=== PATIENT | male | born 1985 | race Caucasian/White ===

== ENCOUNTER 2023-01-06 09:42 | Inpatient (IN) | payer MEDICARE, SELFPAY ==
--- NOTE | ~2023-01-06 | US_ITS ---
EXAMINATION: US ABDOMEN LIMITED CLINICAL INFORMATION: Right upper quadrant pain. Elevated bilirubin. Jaundice.. COMPARISON: None TECHNIQUE: Real-time imaging of the right upper quadrant abdominal viscera. FINDINGS: PANCREAS: Not evaluated. LIVER: Prominent portal vein measuring 2.1 cm. The vein is patent with appropriate directional flow. The liver is normal in size. The liver contour is normal. There is diffuse increased liver parenchymal echogenicity, consistent with hepatic steatosis or hepatocellular disease. No focal hepatic lesion. There is no intrahepatic biliary duct dilatation seen. GALLBLADDER: Thickening of the gallbladder wall measuring 0.5 cm. The gallbladder is physiologically distended without evidence of stones, sludge, polyps, or pericholecystic fluid. COMMON BILE DUCT: Normal in caliber measuring 0.5 cm in diameter. RIGHT KIDNEY: Not evaluated. FREE FLUID: None. US/US abdomen limited IMPRESSION: 1. Increased liver parenchymal echogenicity suggestive of hepatic steatosis or hepatocellular disease. 2. Nonspecific gallbladder wall thickening. This can be seen in the setting of liver disease. No cholelithiasis.
--- NOTE | ~2023-01-06 | XR_ITS ---
EXAMINATION: XR CHEST CLINICAL INFORMATION: Rule out infection. COMPARISON: None TECHNIQUE: Frontal view of the chest was obtained. FINDINGS: No significant abnormality is noted involving the heart, lungs, mediastinum, bony thorax or soft tissues. XR/XR chest 1V IMPRESSION: No acute cardiopulmonary process.
--- NOTE | 2023-01-06 09:52 | ED_ITS ---
HPI - General Adult General Chief complaint: Medical Clearance Stated complaint: WITHDRAWAL FROM ALCOHOL PER EMS Time Seen by Provider: 01/06/23 09:51 Source: patient and EMS Mode of arrival: EMS Limitations: no limitations History of Present Illness HPI narrative: Pt is a 37 y/o male with history of liver disease and esophageal varicies cc seeking detox from alcohol, currently experiencing withdrawals. Pt states his last drink was at approx 0300 this morning. He is currently experiencing a wide range of symptoms but mostly complains of nausea and shakiness. He has been to treatment several times in the past and last went to detox and was sober about one week and has been drinking since. He lives with his parents and has not taken his prescribed medication in at least two weeks. Onset (ago): hour(s) Associated symptoms: chest pain, headaches, loss of appetite, nausea/vomiting, shortness of breath and other (shakiness/unsteadiness) Related Data Home Medications Medication Instructions Recorded Confirmed acamprosate 333 mg tablet,delayed 1 tab PO TID 01/06/23 01/06/23 release atomoxetine 80 mg capsule 1 cap PO QAM 01/06/23 01/06/23 buspirone 10 mg tablet 20 mg PO BID 01/06/23 01/06/23 gabapentin 100 mg capsule 1 cap PO TID 01/06/23 01/06/23 nadolol 20 mg tablet 1 tab PO DAILY 01/06/23 01/06/23 pyridoxine (vitamin B6) 100 mg 1 tab PO DAILY 01/06/23 01/06/23 tablet sertraline 100 mg tablet 150 mg PO DAILY 01/06/23 01/06/23 Allergies Allergy/AdvReac Type Severity Reaction Status Date / Time sulfamethoxazole Allergy Unknown Verified 01/06/23 10:01 [From Bactrim] trimethoprim [From Bactrim] Allergy Unknown Verified 01/06/23 10:01 Review of Systems Constitutional: Constitutional: Reports no additional constitutional complaints, Reports body ache(s), Denies chills, Denies fever(s) and Denies night sweats Eyes: Eyes: Reports no additional eye complaints, Denies blurry vision, Denies change in vision, Denies diplopia, Denies eye discharge, Denies loss of vision and Denies eye pain ENT: Denies dizziness Cardiovascular: Cardiovascular: Reports as per HPI, Reports no additional cardiovascular complaints, Denies chest pain, Denies lightheadedness, Denies Loss of Consciousness and Denies dyspnea Respiratory: Respiratory: Reports no additional respiratory complaints and Denies dyspnea Gastrointestinal: Gastrointestinal: Reports as per HPI, Reports no additional gastrointestinal complaints, Denies abdominal pain, Denies melena, Denies hematochezia, Denies change in bowel habits and Denies change in stool character Genitourinary: Genitourinary: Reports no additional male genitourinary complaints, Denies hematuria, Denies oliguria, Denies difficulty urinating, Denies dysuria, Denies urinary frequency, Denies urinary hesitancy, Denies urinary incontinence and Denies urinary urgency Musculoskeletal: Musculoskeletal: Reports no additional musculoskeletal complaints, Reports as per HPI, Denies numbness and Denies tingling Neurologic: Denies dizziness, Denies loss of vision, Denies numbness and Denies tingling Psychiatric: Psychiatric: Reports no additional psychiatric complaints Endocrine: Endocrine: Reports no additional endocrine complaints Hematologic/Lymphatic: Hematologic/Lymphatic: Reports no additional hematologic/lymphatic complaints Allergic/Immunologic: Allergic/Immunologic: Reports no additional allergic/immunologic complaints PMFSH Past Medical History Attestation statement: The following information was validated with the patient. Source: old records reviewed and nursing notes reviewed Medical History ETOH abuse Social History Social History Alcohol intake: current Alcohol intake frequency: 3 or more drinks per day Alcohol type: hard liquor Smoked in Last 30 Days: No Use of substances other than those prescribed or required for medical reasons: No Advance Directives: Yes Advance Directives Information Provided: Yes Advance Directives on File: No Physical Exam ED Vital Signs: Vital Signs - 24 hr 01/06/23 10:01 01/06/23 12:00 01/06/23 13:40 Temperature 98.3 F 98.2 F 97.2 F Pulse Rate 93 97 88 Respiratory Rate 16 18 18 Blood Pressure 149/75 H 127/85 126/79 Pulse Oximetry 97 96 Oxygen Delivery Method Room Air Room Air Room Air BMI result Body Mass Index 25.0 Const General: cooperative, no acute distress, alert and awake Nutritional Appearance: well nourished Orientation/consciousness: patient oriented x3 Limitations: no limitations HENMT Head: Yes normal to inspection, Yes atraumatic and Yes other (scleral icterus) Ears: hearing grossly normal bilaterally and external ears normal General nose exam: Normal external nose present, no nasal discharge noted and no epistaxis Face and sinus: Yes normal facial exam, No abrasion and No laceration Mouth: Normal oral and palatal mucosa present, no drooling and no muffled voice Eyes Periorbital: periorbital findings normal Eyelids: Yes eyelids normal Sclerae: scleral abnormal (scleral icterus) bilateral Pupils: Equal, round and reactive pupils present EOM: EOMs intact bilaterally Neck Neck: Yes normal visual inspection, Yes full ROM and Yes no lymphadenopathy Chest Chest palpation & inspection: normal inspection of the chest Resp Effort & Inspection: normal respiratory effort and able to speak in complete sentences Auscultation: clear to auscultation bilaterally Cardio Rate: regular rate Rhythm: regular rhythm GI Inspection: Yes normal to inspection Palpation (GI): Soft to palpation, not firm, nontender and no guarding Neuro General: patient oriented x3 and moves all extremities Cranial nerves: Yes Equal, round and reactive pupils present Cognition (Neuro): normal cognition Motor exam (neuro): 5/5 motor strength present throughout Sensory Exam: Normal double simultaneous stimulation for sensation Coordination: [id number] test normal Extrem General: Yes normal to inspection, Yes full ROM and Yes capillary refill normal Psych Appearance: grossly normal Mental Status: mental status grossly normal Affect: normal affect Attitude: cooperative Thought process: Normal thought process present Thought content: Normal thought content present Insight: Good insight present (Psych) Medications Administered Generic Name Dose Route Start Last Admin Trade Name Freq PRN Reason Stop Dose Admin Enoxaparin Sodium 40 mg 01/06/23 16:00 01/06/23 17:29 Enoxaparin Sodium 40 Mg/0.4 Ml Syringe SUBCUT Not Given Q24H RAHEL Folic Acid 1 mg 01/06/23 16:00 01/06/23 17:28 Folic Acid 1 Mg Tablet PO 01/09/23 15:59 1 mg DAILY RAHEL Administration Pantoprazole Sodium 40 mg 01/06/23 16:30 01/06/23 17:27 Pantoprazole Sodium 40 Mg/10 Ml Vial IVPUSH 40 mg BID@0630,1630 RAHEL Administration Phenobarbital Sodium 185 mg 01/06/23 17:00 01/06/23 17:27 Phenobarbital Sodium 130 Mg/Ml Vial Im Q3hx2 IM 01/06/23 20:01 185 mg 1700,2000 RAHEL Administration Sodium Chloride 3 ml 01/06/23 16:00 01/06/23 17:28 0.9 % Sodium Chloride Flush 3 Ml Syringe IVFLUSH 3 ml QSHIFT RAHEL Administration Thiamine HCl 100 mg 01/06/23 16:15 01/06/23 17:28 Thiamine Hcl 100 Mg Tablet PO 01/09/23 16:14 100 mg DAILY RAHEL Administration Discontinued Medications Generic Name Dose Route Start Last Admin Trade Name Avel PRN Reason Stop Dose Admin Magnesium Sulfate 2 gm in 50 mls @ 25 mls/hr 01/06/23 10:14 01/06/23 12:27 Magnesium Sulfate/H2o IV 01/06/23 12:13 Infused ONCE ONE Infusion Lorazepam 2 mg 01/06/23 10:05 01/06/23 10:13 Lorazepam 1 Mg Tablet PO 01/06/23 10:06 2 mg ONCE ONE Administration Ondansetron HCl 4 mg 01/06/23 10:15 01/06/23 10:14 Ondansetron Odt 4 Mg Tab.Rapdis TRANSLINGU 01/06/23 10:16 4 mg ONCE RAHEL Administration Phenobarbital Sodium 246 mg 01/06/23 14:00 01/06/23 13:34 Phenobarbital Sodium 130 Mg/Ml Im Once IM 01/06/23 14:01 246 mg ONCE@1400 RAHEL Administration Medical Decision Making Medical Decision Making MDM Narrative: Patient is a 37 year old assigned male at with a history of liver disease, alcohol abuse, and esophageal varicies presenting to the emergency department today for alcohol withdrawal. Patient's physical exam showed jaundiced sclera and skin. Patient's blood work showed elevated LFTs and a markedly elevated blilirubin of 15.1. Patient's EKG showed a prolonged QT for which the patient received IV mag. Patient's RUQ US showed liver disease. I explained my physical exam findings as well as all test results to the patient. I answered all questions asked by the patient. I spoke to the GI provider covering who recommended medical admission. I spoke to the hospitalist team who agreed to adm ission. Patient was started on IM phenobarb for ETOH withdrawal at a reduced rate given the patient's liver function. Patient verbalized agreement and understanding with this treatment plan and admission. Differential Diagnosis Differential Diagnoses: The differential diagnosis associated with the presentation includes alcohol withdrawal, liver disease, ETOH hepatitis Consult Healthcare Provider Management of the patient was discussed with: Hospitalist (agreed to admission) and Vice President Planning (spoke to GI who recommended medical admission) Lab Data MDM Lab Attestation statement: I reviewed the patient's lab results. 01/06/23 10:19 01/06/23 10:19 Labs: Lab Results 01/06/23 01/06/23 01/06/23 Range/Units 10:19 10:19 10:19 WBC 4.3 L (4.8-10.8) X10*3/uL RBC 3.85 L (4.60-5.80) X10*6/uL Hgb 12.6 L (14.0-18.0) g/dl Hct 37.4 L (42.0-52.0) % MCV 97.1 (80.0-98.0) fL MCH 32.7 (27.0-33.0) pg MCHC 33.7 (31.0-36.0) g/dl RDW 21.3 H (11.0-16.0) % Plt Count 43 L (160-400) X10*3/uL MPV 9.9 (9.4-12.4) fL Immature Gran % (Auto) 0.5 H (0.0-0.4) % Neut % (Auto) 81.4 H (45-73) % Lymph % (Auto) 12.0 L (20-40) % [place] % (Auto) 5.4 (2-11) % Eos % (Auto) 0.0 (0-4) % Baso % (Auto) 0.7 (0-2) % Lymph # (Auto) 0.5 L (1.2-4.9) X10*3/uL [place] # (Auto) 0.2 (0.1-1.2) X10*3/uL Eos # (Auto) 0.0 (0.0-0.4) X10*3/uL Baso # (Auto) 0.0 (0.0-0.2) X10*3/uL Abs Immat Gran (auto) 0.02 (0.00-0.03) X10*3/uL Absolute Neuts (auto) 3.5 (2.0-8.3) x10*3/uL Absolute Nucleated RBC 0.000 (0.0-0.012) X10*3/uL Nucleated RBC % (auto) 0.0 (0.0-0.2) /100WBC PT (10.0-13.1) SEC INR (0.9-1.1) APTT (26.0-36.4) SEC Sodium 143 (135-145) mmol/L Potassium 3.3 (3.3-5.1) mmol/L Chloride 105 (96-108) mmol/L Carbon Dioxide 22 (22-29) mmol/L Anion Gap 19 (12-20) BUN 6 L (9-16) mg/dL Creatinine 0.53 (0.5-1.4) mg/dL Estim Creat Clear Calc 164.3 Estimated GFR > 60 Random Glucose 100 (60-115) mg/dL Calcium 7.4 L (8.4-10.2) mg/dL Magnesium (1.6-2.6) mg/dL Total Bilirubin 15.1 H (0.0-1.0) mg/dL AST 390 H (5-37) U/L ALT 90 H (0-40) U/L Alkaline Phosphatase 375 H (39-117) U/L Ammonia (13-55) umol/L Total Protein 7.1 (6.5-8.0) g/dL Albumin 2.9 L (3.5-5.0) g/dL Salicylates < 5.0 L (15-30) mg/dL Acetaminophen < 17 (<30) mcg/mL COVID-19 ([facility]) Negative (Negative) COVID-19 Clin Com See Note Blood Type Antibody Screen 01/06/23 01/06/23 01/06/23 Range/Units 10:49 14:05 14:05 WBC (4.8-10.8) X10*3/uL RBC (4.60-5.80) X10*6/uL Hgb (14.0-18.0) g/dl Hct (42.0-52.0) % MCV (80.0-98.0) fL MCH (27.0-33.0) pg MCHC (31.0-36.0) g/dl RDW (11.0-16.0) % Plt Count (160-400) X10*3/uL MPV (9.4-12.4) fL Immature Gran % (Auto) (0.0-0.4) % Neut % (Auto) (45-73) % Lymph % (Auto) (20-40) % [place] % (Auto) (2-11) % Eos % (Auto) (0-4) % Baso % (Auto) (0-2) % Lymph # (Auto) (1.2-4.9) X10*3/uL [place] # (Auto) (0.1-1.2) X10*3/uL Eos # (Auto) (0.0-0.4) X10*3/uL Baso # (Auto) (0.0-0.2) X10*3/uL Abs Immat Gran (auto) (0.00-0.03) X10*3/uL Absolute Neuts (auto) (2.0-8.3) x10*3/uL Absolute Nucleated RBC (0.0-0.012) X10*3/uL Nucleated RBC % (auto) (0.0-0.2) /100WBC PT 18.7 H (10.0-13.1) SEC INR 1.6 H (0.9-1.1) APTT 35.7 (26.0-36.4) SEC Sodium (135-145) mmol/L Potassium (3.3-5.1) mmol/L Chloride (96-108) mmol/L Carbon Dioxide (22-29) mmol/L Anion Gap (12-20) BUN (9-16) mg/dL Creatinine (0.5-1.4) mg/dL Estim Creat Clear Calc Estimated GFR Random Glucose (60-115) mg/dL Calcium (8.4-10.2) mg/dL Magnesium 2.1 (1.6-2.6) mg/dL Total Bilirubin (0.0-1.0) mg/dL AST (5-37) U/L ALT (0-40) U/L Alkaline Phosphatase (39-117) U/L Ammonia 42 (13-55) umol/L Total Protein (6.5-8.0) g/dL Albumin (3.5-5.0) g/dL Salicylates (15-30) mg/dL Acetaminophen (<30) mcg/mL COVID-19 ([facility]) (Negative) COVID-19 [facility] Blood Type Antibody Screen 01/06/23 Range/Units 14:41 WBC (4.8-10.8) X10*3/uL RBC (4.60-5.80) X10*6/uL Hgb (14.0-18.0) g/dl Hct (42.0-52.0) % MCV (80.0-98.0) fL MCH (27.0-33.0) pg MCHC (31.0-36.0) g/dl RDW (11.0-16.0) % Plt Count (160-400) X10*3/uL MPV (9.4-12.4) fL Immature Gran % (Auto) (0.0-0.4) % Neut % (Auto) (45-73) % Lymph % (Auto) (20-40) % [place] % (Auto) (2-11) % Eos % (Auto) (0-4) % Baso % (Auto) (0-2) % Lymph # (Auto) (1.2-4.9) X10*3/uL [place] # (Auto) (0.1-1.2) X10*3/uL Eos # (Auto) (0.0-0.4) X10*3/uL Baso # (Auto) (0.0-0.2) X10*3/uL Abs Immat Gran (auto) (0.00-0.03) X10*3/uL Absolute Neuts (auto) (2.0-8.3) x10*3/uL Absolute Nucleated RBC (0.0-0.012) X10*3/uL Nucleated RBC % (auto) (0.0-0.2) /100WBC PT (10.0-13.1) SEC INR (0.9-1.1) APTT (26.0-36.4) SEC Sodium (135-145) mmol/L Potassium (3.3-5.1) mmol/L Chloride (96-108) mmol/L Carbon Dioxide (22-29) mmol/L Anion Gap (12-20) BUN (9-16) mg/dL Creatinine (0.5-1.4) mg/dL Estim Creat Clear Calc Estimated GFR Random Glucose (60-115) mg/dL Calcium (8.4-10.2) mg/dL Magnesium (1.6-2.6) mg/dL Total Bilirubin (0.0-1.0) mg/dL AST (5-37) U/L ALT (0-40) U/L Alkaline Phosphatase (39-117) U/L Ammonia (13-55) umol/L Total Protein (6.5-8.0) g/dL Albumin (3.5-5.0) g/dL Salicylates (15-30) mg/dL Acetaminophen (<30) mcg/mL COVID-19 ([facility]) (Negative) COVID-19 Clin Com Blood Type B Positive Antibody Screen NEGATIVE Independent Interpretation I performed an independent interpretation of an: EKG Interpretation: Vent. Rate: 083 BPM ? ? Atrial Rate: 083 BPM P-R Int: 134 ms? QRS Dur: 088 ms QT Int: 438 ms ? ? ? P-R-T Axes: 000 170 158 degrees QTc Int: 514 ms ? Possible limb lead reversal Normal sinus rhythm Right axis deviation cannot exclude lateral infarct/ischemia Prolonged QT Abnormal ECG No previous ECGs available ? Electronically Signed By:KISHORE BARNES Dictated By: Kishore Barnes MD Signed By: Electronically signed by Kishore Barnes MD 01/06/23 3271 Radiology Impression Radiologist Impression: My interpretation is in agreement with the radiologist's impression of this imaging study. EXAMINATION: US ABDOMEN LIMITED CLINICAL INFORMATION: Right upper quadrant pain. Elevated bilirubin. Jaundice.. COMPARISON: None TECHNIQUE: Real-time imaging of the right upper quadrant abdominal viscera. FINDINGS: PANCREAS: Not evaluated. LIVER: Prominent portal vein measuring 2.1 cm. The vein is patent with appropriate directional flow. The liver is normal in size. The liver contour is normal. There is diffuse increased liver parenchymal echogenicity, consistent with hepatic steatosis or hepatocellular disease.? No focal hepatic lesion. There is no intrahepatic biliary duct dilatation seen. GALLBLADDER: Thickening of the gallbladder wall measuring 0.5 cm. The gallbladder is physiologically distended without evidence of stones, sludge, polyps, or pericholecystic fluid. COMMON BILE DUCT: Normal in caliber measuring 0.5 cm in diameter. RIGHT KIDNEY: Not evaluated. FREE FLUID: None. US/US abdomen limited IMPRESSION: 1.? Increased liver parenchymal echogenicity suggestive of hepatic steatosis or hepatocellular disease. 2.? Nonspecific gallbladder wall thickening. This can be seen in the setting of liver disease. No cholelithiasis. Dictated By: Juancarlos Park MD Signed By: Electronically signed by Juancarlos Park MD 01/06/23 6070 Independent Historian Clinical information obtained from an independent historian. History obtained from or confirmed by: EMS Chronic Conditions Patient?s care impacted by: Other (liver disease) Critical Care Time Critical Care Time Critical Care Time: Yes Total Critical Care Time: 45 Attestation: I spent 45 minutes of Critical Care Time with this patient. This does not include time spent on separately reported billable procedures. Discharge Plan Discharge Clinical Impression: Alcohol use disorder, Alcoholic hepatitis Patient Disposition: Admitted As Inpatient Prescriptions: No Action sertraline 100 mg tablet 150 mg PO DAILY nadolol 20 mg tablet 1 tab PO DAILY buspirone 10 mg tablet 20 mg PO BID pyridoxine (vitamin B6) 100 mg tablet 1 tab PO DAILY gabapentin 100 mg capsule 1 cap PO TID acamprosate 333 mg tablet,delayed release (DR/EC) 1 tab PO TID atomoxetine 80 mg capsule 1 cap PO QAM
[2023-01-06 10:01] VITALS: BP 142/86; BP 149/75; PULSE 102; PULSE 93; RESP 16; TEMP 36.8; O2SAT 97; O2SAT 99; BMI 25.0
--- NOTE | 2023-01-06 10:02 | ECG_ITS ---
Test Reason : medical clearance/detox Blood Pressure : / mmHG Vent. Rate : 083 BPM Atrial Rate : 083 BPM P-R Int : 134 ms QRS Dur : 088 ms QT Int : 438 ms P-R-T Axes : 000 170 158 degrees QTc Int : 514 ms Possible limb lead reversal Normal sinus rhythm Right axis deviation cannot exclude lateral infarct/ischemia Prolonged QT Abnormal ECG No previous ECGs available Referred By: Ermelinda Maldonado Electronically Signed By:BRITTANY HERNANDEZ
[2023-01-06] MEDS: LORazepam 1 MG TABLET 2 MG PO (10:13)
[2023-01-06] MEDS: Ondansetron ODT 4 MG TAB.RAPDIS TRANSLINGU (10:14)
[2023-01-06 10:22] LABS: MANUAL DIFF FLAG NO
[2023-01-06 10:25] LABS: Basophils Percent Auto 0.7 % (0-2); Hematocrit 37.4 % (42.0-52.0); Hemoglobin 12.6 g/dl (14.0-18.0); Imm Gran Abs Auto 0.02 X10*3/uL (0.00-0.03); Imm Gran Pct Auto 0.5 % (0.0-0.4); Lymphocytes Absolute Auto 0.5 X10*3/uL (1.2-4.9); Mean Corpuscular HGB Conc 33.7 g/dl (31.0-36.0); Mean Corpuscular Hemoglobin 32.7 pg (27.0-33.0); Mean Corpuscular Volume 97.1 fL (80.0-98.0); Monocytes Absolute Auto 0.2 X10*3/uL (0.1-1.2); Monocytes Percent Auto 5.4 % (2-11); Neutrophils Absolute Auto 3.5 x10*3/uL (2.0-8.3); Neutrophils Percent Auto 81.4 % (45-73); Red Blood Count 3.85 X10*6/uL (4.60-5.80); Red Cell Distribution Width 21.3 % (11.0-16.0); White Blood Count 4.3 X10*3/uL (4.8-10.8)
[2023-01-06] MEDS: Magnesium Sulfate/H2O 2 GM/50 ML PIGGYBACK IV (10:27)
--- NOTE | 2023-01-06 10:29 | PC.NURSE ---
patient a&ox3, iv inserted, labs drawn, nasal swab obtained,pt medicated per order, ekg performed, seizure precautions placed-pt hx seizures with wd, will continue to monitor.
[2023-01-06 10:36] LABS: COVID-19 Test Negative (Negative); IDNOW Serial# 16C4AD1C
[2023-01-06 10:46] LABS: Acetaminophen LAB < 17 mcg/mL (<30); Alanine Aminotransferase 90 U/L (0-40); Albumin Level 2.9 g/dL (3.5-5.0); Alkaline Phosphatase 375 U/L (39-117); Anion Gap 19 (12-20); Aspartate Amino Transferase 390 U/L (5-37); Bilirubin Total 15.1 mg/dL (0.0-1.0); Blood Urea Nitrogen 6 mg/dL (9-16); Calcium 7.4 mg/dL (8.4-10.2); Carbon Dioxide 22 mmol/L (22-29); Chloride 105 mmol/L (96-108); Creatinine Clr Calc Pharmacy 164.3; Estimated Glomerular Filt Rate > 60; Glucose Random 100 mg/dL (60-115); Potassium 3.3 mmol/L (3.3-5.1); Salicylate < 5.0 mg/dL (15-30); Sodium 143 mmol/L (135-145); Total Protein 7.1 g/dL (6.5-8.0)
[2023-01-06 10:53] LABS: Mean Platelet Volume 9.9 fL (9.4-12.4)
[2023-01-06 10:54] LABS: Platelet Count 43 X10*3/uL (160-400)
[2023-01-06 11:15] LABS: Magnesium 2.1 mg/dL (1.6-2.6)
[2023-01-06 12:00] VITALS: BP 127/85; PULSE 97; RESP 18; TEMP 36.8; O2SAT 96
--- NOTE | 2023-01-06 12:53 | PC.NURSE ---
pt sleeping, wakes to verbal stimulus, a&ox3, vss, no c/o pain or discomfort, seizure precautions intact, will continue to monitor.
[2023-01-06] MEDS: PHENobarbitaL sodium 130 MG/ML IM ONCE 246 MG IM (13:34)
--- NOTE | 2023-01-06 13:36 | PHA.MEDREC ---
Pharmacy Consult ? Medication Reconciliation Pharmacy has completed the medication reconciliation.
[2023-01-06 13:40] VITALS: BP 126/79; PULSE 88; RESP 18; TEMP 36.2
--- NOTE | 2023-01-06 13:42 | PC.NURSE ---
patient a&ox3, program paraprofessional intact nsr/st, vss, pt medicated per order, call auguste within reach, seizure precautions intact, will continue to monitor
[2023-01-06 14:20] LABS: INTERNATIONAL NORM RATIO 1.6 (0.9-1.1); Prothrombin Time 18.7 SEC (10.0-13.1)
[2023-01-06 14:22] LABS: Ammonia 42 umol/L (13-55)
[2023-01-06 14:23] LABS: Partial Thromboplastin Time 35.7 SEC (26.0-36.4)
--- NOTE | 2023-01-06 14:29 | P.HPHOSP_ITS ---
History of Present Illness Date of Service: 01/06/23 Attending physician on admission: Tracey Ivan Chief Complaint: Alcohol detox Pt is a 37-year-old male with a PMH significant for?alcoholic cirrhosis, esophageal varices, and alcohol withdrawal with seizures who presents to the ED seeking alcohol detox. Patient has been drinking heavily for the past 20 years with multiple detoxes and attempts at quitting. Most recently detoxed on 12/16, sober following for up to one week. Has been drinking 1.5L of vodka daily since. Pt stopped drinking this morning at 03:30. Soon developed shakes, nausea, and vomiting without hematemesis. Patient then presented to the ED for detox. Patient states that he has had headache and increase in anxiety. Denies diaphoresis. No abdominal pain. Denies seizures, auditory or visual hallucinations. In the ED labs were significant for WBC of 4.3, H&H of 12.6/37.4, platelets 43, BUN 6, total bilirubin of 15.1, AST 390, ALT 9, and alk-phos of 375. Ultrasound of upper right quadrant suggestive of hepatic steatosis or hepatocellular disease with nonspecific gallbladder wall thickening possibly secondary to liver disease without cholelithiasis. EKG demonstrated normal sinus rhythm without evidence of ST elevation or depression. Pt was treated with Ativan, ondansetron, Mag sulfate, and placed on phenobarb protocol. Pt will be admitted to the hospital for treatment of acute alcohol withdrawal. Review of Systems Review of Systems: Shaking Nausea, vomiting without hematemesis Tremors Anxiety Headache Yes all other systems are reviewed and are negative PMFSH Medical History ETOH abuse Social History Alcohol intake: current Alcohol intake frequency: 3 or more drinks per day Alcohol type: hard liquor Smoked in Last 30 Days: No Use of substances other than those prescribed or required for medical reasons: No Advance Directives: Yes Advance Directives Information Provided: Yes Advance Directives on File: No Meds Allergies Allergy/AdvReac Type Severity Reaction Status Date / Time sulfamethoxazole Allergy Unknown Verified 01/06/23 10:01 [From Bactrim] trimethoprim [From Bactrim] Allergy Unknown Verified 01/06/23 10:01 Active Medications: Current Medications Pharmacy Consult (Consult Rx Perform Med Rec) 1 each MISCELLANE ONCE PRN PRN Reason: Consult order Pharmacy Consult (Consult Rx Etoh Phenob Im/Po) 1 each MISCELLANE ONCE PRN; Protocol PRN Reason: Consult order Phenobarbital (Phenobarbital 15 Mg Tablet) 45 mg PO BID [facility] Stop: 01/08/23 21:01 Phenobarbital (Phenobarbital 15 Mg Tablet) 15 mg PO BID [facility] Stop: 01/10/23 21:01 Phenobarbital (Phenobarbital 15 Mg Tablet) 15 mg PO DAILY [facility] Stop: 01/12/23 09:01 Phenobarbital Sodium (Phenobarbital Sodium 130 Mg/Ml Vial Im Q3hx2) 185 mg IM 1700,1999 [facility] Stop: 01/06/23 20:01 Home Medications Medication Instructions Recorded Confirmed Last Taken Type acamprosate 333 mg tablet,delayed 1 tab PO TID 01/06/23 01/06/23 Unknown History release atomoxetine 80 mg capsule 1 cap PO QAM 01/06/23 01/06/23 Unknown History buspirone 10 mg tablet 20 mg PO BID 01/06/23 01/06/23 Unknown History gabapentin 100 mg capsule 1 cap PO TID 01/06/23 01/06/23 Unknown History nadolol 20 mg tablet 1 tab PO DAILY 01/06/23 01/06/23 Unknown History pyridoxine (vitamin B6) 100 mg 1 tab PO DAILY 01/06/23 01/06/23 Unknown History tablet sertraline 100 mg tablet 150 mg PO DAILY 01/06/23 01/06/23 Unknown History Physical Exam Vital Signs and Narrative: Vital Signs: Last Vital Signs Temp 97.2 F 01/06/23 13:40 Pulse 88 01/06/23 13:40 Resp 18 01/06/23 13:40 BP 126/79 01/06/23 13:40 Pulse Ox 96 01/06/23 12:00 O2 Del Method 01/06/23 13:40 BMI result Body Mass Index 25.0 Constitutional: Alert, in no acute distress. Mental Status: Oriented to person, place and time. Eyes: Sclera icteric, right worse than left. Pupils are equal, round, and reactive to light. Ear, Nose, and Throat: Oropharynx clear, mucous membranes moist. Ears and nose without deformities. Trachea midline. Monor fasciculations of tongue. Respiratory: Clear to auscultation bilaterally. No wheezing, rales, or rhonchi. Cardiovascular: S1, S2 regular. No murmurs, rubs, or gallops. Gastrointestinal: Abdomen soft, non-tender, non-distended. Normal bowel sounds. Enlarged liver. Neurologic: Cranial nerves II-XII are grossly intact bilaterally. No focal neurological deficits. Moves all extremities spontaneously. Mild and tremors. Skin: No rashes or lesions noted. Musculoskeletal: No cyanosis or clubbing. Extremities: No edema. Psychiatric: Normal mood and affect. Results Labs 01/06/23 10:19 01/06/23 10:19 Labs: Laboratory Results - last 24 hr 01/06/23 01/06/23 01/06/23 10:19 10:19 10:19 MCV 97.1 MCH 32.7 MCHC 33.7 RDW 21.3 H Plt Count 43 L MPV 9.9 Immature Gran % (Auto) 0.5 H Neut % (Auto) 81.4 H Lymph % (Auto) 12.0 L [place] % (Auto) 5.4 Eos % (Auto) 0.0 Baso % (Auto) 0.7 Lymph # (Auto) 0.5 L [place] # (Auto) 0.2 Eos # (Auto) 0.0 Baso # (Auto) 0.0 Abs Immat Gran (auto) 0.02 Absolute Neuts (auto) 3.5 Absolute Nucleated RBC 0.000 Nucleated RBC % (auto) 0.0 PT INR APTT Anion Gap 19 Estim Creat Clear Calc 164.3 Estimated GFR > 60 Random Glucose 100 Calcium 7.4 L Magnesium Total Bilirubin 15.1 H AST 390 H ALT 90 H Alkaline Phosphatase 375 H Ammonia Total Protein 7.1 Albumin 2.9 L Salicylates < 5.0 L Acetaminophen < 17 COVID-19 ([facility]) Negative COVID-19 Clin Com See Note 01/06/23 01/06/23 01/06/23 10:49 14:05 14:05 MCV MCH MCHC RDW Plt Count MPV Immature Gran % (Auto) Neut % (Auto) Lymph % (Auto) [place] % (Auto) Eos % (Auto) Baso % (Auto) Lymph # (Auto) [place] # (Auto) Eos # (Auto) Baso # (Auto) Abs Immat Gran (auto) Absolute Neuts (auto) Absolute Nucleated RBC Nucleated RBC % (auto) PT 18.7 H INR 1.6 H APTT 35.7 Anion Gap Estim Creat Clear Calc Estimated GFR Random Glucose Calcium Magnesium 2.1 Total Bilirubin AST ALT Alkaline Phosphatase Ammonia 42 Total Protein Albumin Salicylates Acetaminophen COVID-19 ([facility]) COVID-19 Clin Com Imaging Radiologist's Impressions: Impressions Abdomen Ultrasound 01/06/23 11:31 IMPRESSION: 1. Increased liver parenchymal echogenicity suggestive of hepatic steatosis or hepatocellular disease. 2. Nonspecific gallbladder wall thickening. This can be seen in the setting of liver disease. No cholelithiasis. Assessment and Plan (1) Alcohol use disorder: Status: Acute (2) Alcoholic hepatitis: Status: Acute (3) Alcohol withdrawal: Status: Acute Plan Pt is a 37-year-old male with a PMH significant for?alcoholic cirrhosis, esophageal varices, and alcohol withdrawal with seizures who presents to the ED seeking alcohol detox. Patient will be admitted to the hospital on telemetry for treatment of acute alcohol withdrawal. Acute alcohol withdrawal Mild shakiness, no hallucinations, history of seizure Patient received Ativan, ondansetron, Mag sulfate, and placed on phenobarbital protocol in ED Continue phenobarb Daiy multivitamin, folic acid 1mg, thiamine 100mg daily IV Protonix bid Addiction medicine consult Follow lyetes, Mag, BMP Patient to be placed on IVF: lactated ringers CIWA scale Seizure protocols Admit to telemetry Transaminitis, hyperbilirubinemia, ?Alcoholic hepatitis US of abdomen shows enlarged fatty liver, likely secondary to alcohol use Treatment with corticosteroids once infection ruled out, per GI Check Hep A IgM and IgG, Hep B cAb/sAb/sAg, and Hep C Ab, per GI Complete infectious work up including UA, blood culture and CXR. No ascites noted on US, per GI Nutrition goal >21kcal/kg/day and 1-1.5g/kg/day of protein- offer nutrition shakes TID to help meet this goal (mortality benefit), per GI Trend mental status clinically and check daily for asterixis, per GI Monitor MELD labs daily including bilirubin, INR, creatinine, sodium Thrombocytopenia Likely secondary to alcohol use Follow CBC Prolonged QT EKG showed QTc of 514 Avoid QT-prolonging agents Full Code Attending:?Dr. Ivan DVT Prophylaxis: Lovenox Pt will require a hospitalization of at least two nights for treatment of?cute alcohol withdrawal with IV phenobarbital. Time Spent With Patient Time: Total time managing care of this patient today ____ minutes. Quality Stroke Does the patient have a stroke diagnosis?: No VTE Prior VTE?: No VTE Risk Level:: Medical - moderate - high VTE Device Contraindication: Treatment Not Indicated VTE Drug Contraindication: N/A - Med Ordered
--- NOTE | 2023-01-06 14:31 | PM.GICN ---
History of Present Illness Data of Consult Service Date: 01/06/23 Requesting physician: Ermelinda Maldonado Primary Care Provider: None Physician HPI Reason for consult: Elevated LFTs This is a 37-year-old gentleman past medical history of heavy alcohol use disorder, history of ascites, who presented to the emergency room for alcohol withdrawal. Patient reports drinking 1-2 quarts of vodka every day for almost 20 years now. Has had multiple attempts to quit alcohol use including being sober for almost 6 months 8 years ago, and more recently being sober for a few weeks when he was in detox in December. He reports he again tried to stop drinking alcohol this morning at 03:00, and within a few hours, he started developing nausea, vomiting and shakes. He therefore presented to the emergency room to get care for withdrawal. However, in the emergency room, he was noted to be significantly jaundiced on exam and therefore blood work was ordered that confirmed bilirubin of 15.1 with AST 390, ALT 90 and alkaline phosphatase 375. INR 1.6. Patient states he has been told multiple times regarding effect of alcohol on the liver. Also reports getting prednisone for his liver almost 10 years ago. Ultrasound abdomen reviewed, enlarged fatty liver. CBD normal. Review of Systems Review of Systems: Yes all other systems are reviewed and are negative PMFSH Past Medical History Medical History ETOH abuse Social History Social History Alcohol intake: current Alcohol intake frequency: 3 or more drinks per day Alcohol type: hard liquor Smoked in Last 30 Days: No Use of substances other than those prescribed or required for medical reasons: No Advance Directives: Yes Advance Directives Information Provided: Yes Advance Directives on File: No Meds Allergies Allergy/AdvReac Type Severity Reaction Status Date / Time sulfamethoxazole Allergy Unknown Verified 01/06/23 10:01 [From Bactrim] trimethoprim [From Bactrim] Allergy Unknown Verified 01/06/23 10:01 Active Medications: Current Medications Pharmacy Consult (Consult Rx Perform Med Rec) 1 each MISCELLANE ONCE PRN PRN Reason: Consult order Pharmacy Consult (Consult Rx Etoh Phenob Im/Po) 1 each MISCELLANE ONCE PRN; Protocol PRN Reason: Consult order Phenobarbital (Phenobarbital 15 Mg Tablet) 45 mg PO BID [facility] Stop: 01/08/23 21:01 Phenobarbital (Phenobarbital 15 Mg Tablet) 15 mg PO BID [facility] Stop: 01/10/23 21:01 Phenobarbital (Phenobarbital 15 Mg Tablet) 15 mg PO DAILY [facility] Stop: 01/12/23 09:01 Phenobarbital Sodium (Phenobarbital Sodium 130 Mg/Ml Vial Im Q3hx2) 185 mg IM 1700,2000 [facility] Stop: 01/06/23 20:01 Home Medications Medication Instructions Recorded Confirmed Last Taken Type acamprosate 333 mg tablet,delayed 1 tab PO TID 01/06/23 01/06/23 Unknown History release atomoxetine 80 mg capsule 1 cap PO QAM 01/06/23 01/06/23 Unknown History buspirone 10 mg tablet 20 mg PO BID 01/06/23 01/06/23 Unknown History gabapentin 100 mg capsule 1 cap PO TID 01/06/23 01/06/23 Unknown History nadolol 20 mg tablet 1 tab PO DAILY 01/06/23 01/06/23 Unknown History pyridoxine (vitamin B6) 100 mg 1 tab PO DAILY 01/06/23 01/06/23 Unknown History tablet sertraline 100 mg tablet 150 mg PO DAILY 01/06/23 01/06/23 Unknown History Physical Exam Vital Signs: Vital Signs: Last Vital Signs Temp 97.2 F 01/06/23 13:40 Pulse 88 01/06/23 13:40 Resp 18 01/06/23 13:40 BP 126/79 01/06/23 13:40 Pulse Ox 96 01/06/23 12:00 O2 Del Method 01/06/23 13:40 BMI result Body Mass Index 25.0 Gen appear: young male, diaphoretic, grossly jaundiced HEENT: scleral icterus, no cervical lymphadenopathy Chest: No overt resp distress CVS: S1/S2, regular Abd: soft, nontender, distended, palpable liver edge, no shifting dullness to percussion Psych: Stable affect, answering questions appropriately Neuro: A/Ox3 noted to move all extremities spontaneously, fine tremors, no asterixis Ext: no peripheral edema Results Labs 01/06/23 10:19 01/06/23 10:19 Labs: Short CBC 01/06/23 Range/Units 10:19 WBC 4.3 L (4.8-10.8) X10*3/uL Hgb 12.6 L (14.0-18.0) g/dl Hct 37.4 L (42.0-52.0) % Plt Count 43 L (160-400) X10*3/uL BMP 01/06/23 10:19 Sodium 143 Potassium 3.3 Chloride 105 Carbon Dioxide 22 BUN 6 L Creatinine 0.53 Calcium 7.4 L Liver Function 01/06/23 Range/Units 10:19 Total Bilirubin 15.1 H (0.0-1.0) mg/dL AST 390 H (5-37) U/L ALT 90 H (0-40) U/L Alkaline Phosphatase 375 H (39-117) U/L Albumin 2.9 L (3.5-5.0) g/dL Imaging US - abdomen: Radiologist's impression: 1.? Increased liver parenchymal echogenicity suggestive of hepatic steatosis or hepatocellular disease. 2.? Nonspecific gallbladder wall thickening. This can be seen in the setting of liver disease. No cholelithiasis. Assessment and Plan (1) Alcohol use disorder: Status: Acute (2) Alcoholic hepatitis: Status: Acute (3) Anemia: Status: Acute (4) Thrombocytopenia: Status: Acute Plan Overall presentation consistent with acute alcohol withdrawal complicated by alcoholic hepatitis. Likely has some degree of underlying liver fibrosis and possibly portal hypertension given the degree of thrombocytopenia,secondary to longstanding alcohol use disorder. MDF 45.9 MELD-Na 22 Given poor prognosis based on Maddrey's score, would recommend treatment with corticosteroids. However, will need to rule out infection for most. Patient was also advised that nutrition remains the cornerstone of treatment. Recommendations: -Please check Hep A IgM and IgG, Hep B cAb/sAb/sAg, and Hep C Ab -Monitor MELD labs daily including bilirubin, INR, creatinine, sodium -No role for checking or trending ammonia, trend mental status clinically and check daily for asterixis -Complete infectious work up including UA, blood culture and CXR. No ascites noted on US. -Nutrition goal >21kcal/kg/day and 1-1.5g/kg/day of protein- offer nutrition shakes TID to help meet this goal (mortality benefit) -CIWA protocol. Avoid long-acting benzodiazepines. Symptom triggered Ativan is okay. -Addiction medicine consult -Avoid all NSAIDS Thank you for allowing me to participate in his care. Please do not hesitate to reach out for any questions or concerns. Time Spent With Patient Time: Total time managing care of this patient today ____ minutes. Procedures Date of Service Date of Service: 01/06/23
[2023-01-06 15:56] VITALS: BP 125/71; PULSE 92; RESP 16; TEMP 37.4; O2SAT 96
[2023-01-06] MEDS: Pantoprazole Sodium 40 MG/10 ML VIAL IVPUSH (17:27)
[2023-01-06] MEDS: PHENobarbitaL sodium 130 MG/ML VIAL IM Q3Hx2 185 MG IM ×2 (17:27→20:41)
[2023-01-06] MEDS: Thiamine HCL 100 MG TABLET PO (17:28)
[2023-01-06] MEDS: 0.9 % Sodium Chloride Flush 3 ML SYRINGE IVFLUSH (17:28)
[2023-01-06] MEDS: Folic Acid 1 MG TABLET PO (17:28)
[2023-01-06 17:45] LABS: Appearance Urine Turbid; Color Urine Dark Yellow; Glucose Urine UA Negative (Negative); Leukocyte Esterase Urine Small (1+) (Negative); Nitrite Urine Positive (Negative); UMIC TRIGGER UA YES; Urine Blood Trace (Negative); Urine Ketones 15 mg/dL (Negative); Urine Protein Trace mg/dL (Neg-Trace)
[2023-01-06 17:59] LABS: Amphetamine Screen Urine Not Detected (Not Detect); Barbiturates, Urine POSITIVE (Not Detect); Benzodiazepines Screen Urine Not Detected (Not Detect); Cannabinoid Screen Urine Not Detected (Not Detect); Cocaine Screen Urine Not Detected (Not Detect); Fentanyl, urine Not Detected (Not Detect); Opiate Screen Urine Not Detected (Not Detect); Phencyclidine Screen Urine Not Detected (Not Detect)
[2023-01-06 18:01] LABS: Bacteria Urine None Seen (None Seen); Hyaline Casts Urine 0-2 /LPF (0-2); Squamous Epithelial Cell Urine 0-2 /HPF (0-2); WBC Urine 0-5 /HPF (0-5)
--- NOTE | 2023-01-06 18:18 | PC.NURSE ---
pt sleeping, wakes to verbal stimulus, denies pain/discomfort at this time, vss, monitoring tech intact, seizure precautions intact, call auguste within reach, will continue to monitor.
--- NOTE | 2023-01-06 19:41 | MHC.CM.PN ---
Pt sleeping soundly. Did not rouse to voice. Will completed CM assessment when patient wakes.
[2023-01-06 20:39] VITALS: BP 109/55; PULSE 104
[2023-01-06] MEDS: Acamprosate Calcium 333 MG TABLET.DR PO (20:42)
[2023-01-06] MEDS: busPIRone HCl 10 MG TABLET 20 MG PO (20:42)
--- NOTE | 2023-01-06 20:47 | PC.NURSE ---
pt medicated per order. Reports mild headache, updated CIWA score 6
--- NOTE | 2023-01-06 21:28 | MHC.CM.PN ---
IMM 01/06. CM met with admitted patient with bed assignment pending. Pt with long standing ETOH abuse. Has been in tx program. Willing to attend treatment at discharge.Consult already made to addiction medicine. Pt agreeable to consult. Lives with mother. No DME/services. Pfizer x2/booster x1. No PCP. No HCP on file. Reviewed, completed and signed. Copies given. Uploaded into [facility] and [facility]. HCP/mother Solange Guerra ([phone]). D/C plan: As per Addiction medicine. Pt will arrange transport home. CM will follow for discharge planning.
[2023-01-06 22:47] VITALS: BP 124/71; PULSE 95; RESP 18; TEMP 37.3; O2SAT 95
[2023-01-07] VITALS (7 sets, daily range): BP systolic 117–138; BP diastolic 65–82; PULSE 74–111; RESP 14–20; TEMP 36.2–37.9; O2SAT 94–96; BMI 25.8
[2023-01-07] MEDS: 0.9 % Sodium Chloride Flush 3 ML SYRINGE IVFLUSH ×3 (00:43→21:48)
[2023-01-07] MEDS: hydrOXYzine HCL 25 MG TABLET PO (00:47)
--- NOTE | 2023-01-07 00:48 | PC.NURSE ---
This display card writer assumed care of this Pt at 2300. Pt sleeping, awakens upon verbal stimuli, calm and cooperative. Denies any pain. Shaking of the hand noted with arms extended. States his anxiety is high, medicated per MAR. VSS.
[2023-01-07] MEDS: Pantoprazole Sodium 40 MG/10 ML VIAL IVPUSH (05:50)
[2023-01-07] MEDS: Acetaminophen 325 MG TABLET 650 MG PO (05:57)
--- NOTE | 2023-01-07 06:00 | PC.NURSE ---
Addendum entered by Sonia Amezcua 01/07/23 06:01: Temp 100.3 Original Note: Pt reports effectiveness to med given. Visible hand tremors continues. Seizure precautions remain in place. Temp of 100.4 noted, meds given as documented. Will CTM.
[2023-01-07 06:22] LABS: HBc Num1 0.22 S/CO (0.00-0.79); HBsAGNum1 0.29 S/CO (0.00-0.99); Hepatitis A Antibody IgG REACTIVE (Nonreactive); Hepatitis A Antibody IgM 0.23 Index (0-0.79); Hepatitis A Antibody IgM 0.29 Index (0-0.79); Hepatitis B Core Antibody Nonreactive (Nonreactive); Hepatitis B Surface Antigen Negative (Negative); ~HepC Num1 0.42 S/CO (0.00-0.79); ~Hepatitis A Antibody IgG 1.72 S/CO (0.00-0.99); ~Hepatitis A Antibody IgM Nonreactive (Nonreactive); ~Hepatitis B Surface Antibody REACTIVE (Nonreactive); ~Hepatitis C Antibody Nonreactive (Nonreactive)
[2023-01-07] MEDS: PHENobarbitaL 15 MG TABLET 45 MG PO ×2 (07:41→21:46)
[2023-01-07] MEDS: Sertraline HCL 50 MG TABLET 150 MG PO (07:42)
[2023-01-07] MEDS: Folic Acid 1 MG TABLET PO (07:43)
[2023-01-07] MEDS: Thiamine HCL 100 MG TABLET PO (07:43)
[2023-01-07] MEDS: busPIRone HCl 10 MG TABLET 20 MG PO ×2 (07:43→21:46)
[2023-01-07] MEDS: Acamprosate Calcium 333 MG TABLET.DR PO ×3 (08:15→21:46)
[2023-01-07] MEDS: nadoloL 20 MG TABLET PO (08:15)
[2023-01-07] MEDS: Pyridoxine HCl (Vitamin B6) 50 MG TABLET 100 MG PO (08:15)
[2023-01-07 08:37] LABS: Hematocrit 34.2 % (42.0-52.0); Hemoglobin 11.5 g/dl (14.0-18.0); Mean Corpuscular HGB Conc 33.6 g/dl (31.0-36.0); Mean Corpuscular Volume 98.3 fL (80.0-98.0); Red Blood Count 3.48 X10*6/uL (4.60-5.80); Red Cell Distribution Width 20.4 % (11.0-16.0); White Blood Count 3.9 X10*3/uL (4.8-10.8)
[2023-01-07 08:40] LABS: INTERNATIONAL NORM RATIO 1.7 (0.9-1.1); Prothrombin Time 20.5 SEC (10.0-13.1)
[2023-01-07 08:43] LABS: Alanine Aminotransferase 80 U/L (0-40); Albumin Level 2.6 g/dL (3.5-5.0); Alkaline Phosphatase 325 U/L (39-117); Anion Gap 15 (12-20); Aspartate Amino Transferase 322 U/L (5-37); Bilirubin Direct 12.1 mg/dL (0.0-0.5); Blood Urea Nitrogen 7 mg/dL (9-16); Calcium 7.5 mg/dL (8.4-10.2); Carbon Dioxide 22 mmol/L (22-29); Chloride 100 mmol/L (96-108); Creatinine Clr Calc Pharmacy 142.8; Estimated Glomerular Filt Rate > 60; Glucose Random 108 mg/dL (60-115); Potassium 3.6 mmol/L (3.3-5.1); Sodium 133 mmol/L (135-145); Total Protein 6.3 g/dL (6.5-8.0)
[2023-01-07 08:56] LABS: Platelet Count 24 X10*3/uL (160-400)
--- NOTE | 2023-01-07 10:33 | HO.PM.IMPN ---
Subjective Subjective Date of Service: 01/07/23 Interval History: patient feeling better this morning, denies nausea, vomiting, no abdominal pain, tolerating diet ,complaining of persistent mild hand tremors, no acute events overnight, no fevers no chills, no cough, no urinary symptoms. Review of Systems Review of Systems: Yes all other systems are reviewed and are negative Physical Exam Vital Signs: Vital Signs: Last Vital Signs Temp 99.5 F 01/07/23 08:41 Pulse 111 H 01/07/23 08:41 Resp 16 01/07/23 08:41 BP 136/82 01/07/23 08:41 Pulse Ox 95 01/07/23 08:41 O2 Del Method 01/07/23 08:41 BMI result Body Mass Index 25.8 Const: Other: General awake alert x3, resting comfortably in no acute distress. sclera icterus Neck supple no JVD. CVS regular rate rhythm, Respiratory lungs clear to auscultation, no respiratory distress, no wheeze, no rhonchi. Gastrointestinal abdomen soft, non tender, bowel sounds audible,no guarding , no rigidity. Extremities no edema, no asterixis Neuro nonfocal ,speech clear, bilateral hand tremors. Skin jaundiced psych appropriate affect Objective Data Active Medications Acamprosate (Acamprosate Calcium 333 Mg Tablet.) 333 mg PO TID [facility] Last Admin: 01/07/23 08:15 Dose: 333 mg Documented By: DAMEON Acetaminophen (Acetaminophen 325 Mg Tablet) 650 mg PO Q6H PRN PRN Reason: Pain, Mild (Pain Scale 1-3) Last Admin: 01/07/23 05:57 Dose: 650 mg Documented By: JORI Buspirone HCl (Buspirone Hcl 10 Mg Tablet) 20 mg PO BID [facility] Last Admin: 01/07/23 07:43 Dose: 20 mg Documented By: DAMEON Docusate Sodium (Docusate Sodium 100 Mg Capsule) 100 mg PO DAILY PRN PRN Reason: Constipation Enoxaparin Sodium (Enoxaparin Sodium 40 Mg/0.4 Ml Syringe) 40 mg SUBCUT Q24H [facility] Last Admin: 01/06/23 17:29 Dose: Not Given Documented By: WILNER Non-Admin Reason: Patient Refused Folic Acid (Folic Acid 1 Mg Tablet) 1 mg PO DAILY [facility] Stop: 01/09/23 15:59 Last Admin: 01/07/23 07:43 Dose: 1 mg Documented By: DAMEON Hydroxyzine HCl (Hydroxyzine Hcl 25 Mg Tablet) 25 mg PO Q6H PRN PRN Reason: anxiety Last Admin: 01/07/23 00:47 Dose: 25 mg Documented By: JORI Nadolol (Nadolol 20 Mg Tablet) 20 mg PO DAILY [facility]; Protocol Last Admin: 01/07/23 08:15 Dose: 20 mg Documented By: DAMEON Non-Formulary Medication (Atomoxetine) 1 cap PO DAILY [facility] Pantoprazole Sodium (Pantoprazole Sodium 40 Mg/10 Ml Vial) 40 mg IVPUSH BID@0630,1630 [facility] Last Admin: 01/07/23 05:50 Dose: 40 mg Documented By: JORI Pharmacy Consult (Consult Rx Perform Med Rec) 1 each MISCELLANE ONCE PRN PRN Reason: Consult order Pharmacy Consult (Consult Rx Etoh Phenob Im/Po) 1 each MISCELLANE ONCE PRN; Protocol PRN Reason: Consult order Phenobarbital (Phenobarbital 15 Mg Tablet) 45 mg PO BID [facility] Stop: 01/08/23 21:01 Last Admin: 01/07/23 07:41 Dose: 45 mg Documented By: DAMEON Phenobarbital (Phenobarbital 15 Mg Tablet) 15 mg PO BID [facility] Stop: 01/10/23 21:01 Phenobarbital (Phenobarbital 15 Mg Tablet) 15 mg PO DAILY [facility] Stop: 01/12/23 09:01 Pyridoxine HCl (Pyridoxine Hcl (Vitamin B6) 50 Mg Tablet) 100 mg PO DAILY [facility] Last Admin: 01/07/23 08:15 Dose: 100 mg Documented By: DAMEON Sertraline HCl (Sertraline Hcl 50 Mg Tablet) 150 mg PO DAILY [facility] Last Admin: 01/07/23 07:42 Dose: 150 mg Documented By: DAMEON Sodium Chloride (0.9 % Sodium Chloride Flush 3 Ml Syringe) [facility] Last Admin: 01/07/23 06:57 Dose: Not Given Documented By: DAMEON Non-Admin Reason: Med Not Available Sodium Chloride (0.9 % Sodium Chloride Flush 3 Ml Syringe) 3 ml IVFLUSH QSRIFT [facility] Last Admin: 01/07/23 08:23 Dose: Not Given Documented By: DAMEON Non-Admin Reason: Med Not Available Thiamine HCl (Thiamine Hcl 100 Mg Tablet) 100 mg PO DAILY [facility] Stop: 01/09/23 16:14 Last Admin: 01/07/23 07:43 Dose: 100 mg Documented By: DAMEON Labs 01/07/23 08:17 01/07/23 08:17 Labs: Laboratory Results - last 24 hr 01/06/23 01/06/23 01/06/23 10:19 10:19 10:19 MCV MCH MCHC RDW Plt Count 43 L MPV 9.9 Absolute Nucleated RBC Nucleated RBC % (auto) PT INR APTT Anion Gap 19 Estim Creat Clear Calc 164.3 Estimated GFR > 60 Random Glucose 100 Calcium 7.4 L Magnesium Total Bilirubin 15.1 H Direct Bilirubin AST 390 H ALT 90 H Alkaline Phosphatase 375 H Ammonia Total Protein 7.1 Albumin 2.9 L Urine Color Urine Appearance Urine pH Ur Specific [place] Urine Protein Urine Glucose (UA) Urine Ketones Urine Blood Urine Nitrite Ur Leukocyte Esterase Urine RBC Urine WBC Ur Squamous Epith Cells Urine Bacteria Hyaline Casts Salicylates < 5.0 L Urine Opiates Screen Urine Fentanyl Screen Acetaminophen < 17 Ur Barbiturates Screen Ur Phencyclidine Scrn Ur Amphetamines Screen U Benzodiazepines Scrn Urine Cocaine Screen U Marijuana (THC) Screen COVID-19 (SANG) Negative COVID-19 Clin Com See Note Hepatitis A IgG Ab Hepatitis A IgM Ab Hep Bs Antigen Hep Bs Antibody Hep B Core Total Ab Hepatitis C Ab (EIA) Blood Type Antibody Screen 01/06/23 01/06/23 01/06/23 10:49 14:05 14:05 MCV MCH MCHC RDW Plt Count MPV Absolute Nucleated RBC Nucleated RBC % (auto) PT 18.7 H INR 1.6 H APTT 35.7 Anion Gap Estim Creat Clear Calc Estimated GFR Random Glucose Calcium Magnesium 2.1 Total Bilirubin Direct Bilirubin AST ALT Alkaline Phosphatase Ammonia 42 Total Protein Albumin Urine Color Urine Appearance Urine pH Ur Specific [place] Urine Protein Urine Glucose (UA) Urine Ketones Urine Blood Urine Nitrite Ur Leukocyte Esterase Urine RBC Urine WBC Ur Squamous Epith Cells Urine Bacteria Hyaline Casts Salicylates Urine Opiates Screen Urine Fentanyl Screen Acetaminophen Ur Barbiturates Screen Ur Phencyclidine Scrn Ur Amphetamines Screen U Benzodiazepines Scrn Urine Cocaine Screen U Marijuana (THC) Screen COVID-19 (SANG) COVID-19 Clin Com Hepatitis A IgG Ab Hepatitis A IgM Ab Hep Bs Antigen Hep Bs Antibody Hep B Core Total Ab Hepatitis C Ab (EIA) Blood Type Antibody Screen 01/06/23 01/06/23 01/06/23 14:41 16:20 16:20 MCV MCH MCHC RDW Plt Count MPV Absolute Nucleated RBC Nucleated RBC % (auto) PT INR APTT Anion Gap Estim Creat Clear Calc Estimated GFR Random Glucose Calcium Magnesium Total Bilirubin Direct Bilirubin AST ALT Alkaline Phosphatase Ammonia Total Protein Albumin Urine Color Urine Appearance Urine pH Ur Specific [place] Urine Protein Urine Glucose (UA) Urine Ketones Urine Blood Urine Nitrite Ur Leukocyte Esterase Urine RBC Urine WBC Ur Squamous Epith Cells Urine Bacteria Hyaline Casts Salicylates Urine Opiates Screen Urine Fentanyl Screen Acetaminophen Ur Barbiturates Screen Ur Phencyclidine Scrn Ur Amphetamines Screen U Benzodiazepines Scrn Urine Cocaine Screen U Marijuana (THC) Screen COVID-19 (SANG) COVID-19 Clin Com Hepatitis A IgG Ab REACTIVE Hepatitis A IgM Ab Nonreactive Nonreactive Hep Bs Antigen Negative Hep Bs Antibody REACTIVE Hep B Core Total Ab Nonreactive Hepatitis C Ab (EIA) Nonreactive Blood Type B Positive Antibody Screen NEGATIVE 01/06/23 01/06/23 01/07/23 17:16 17:16 08:17 MCV 98.3 H MCH 33.0 MCHC 33.6 RDW 20.4 H Plt Count 24 L D MPV 9.0 L Absolute Nucleated RBC 0.000 Nucleated RBC % (auto) 0.0 PT INR APTT Anion Gap Estim Creat Clear Calc Estimated GFR Random Glucose Calcium Magnesium Total Bilirubin Direct Bilirubin AST ALT Alkaline Phosphatase Ammonia Total Protein Albumin Urine Color Dark Yellow Urine Appearance Turbid Urine pH 7.0 Ur Specific [place] 1.020 Urine Protein Trace Urine Glucose (UA) Negative Urine Ketones 15 Urine Blood Trace H Urine Nitrite Positive H Ur Leukocyte Esterase Small (1+) H Urine RBC 11-20 H Urine WBC 0-5 Ur Squamous Epith Cells 0-2 Urine Bacteria None Seen Hyaline Casts 0-2 Salicylates Urine Opiates Screen Not Detected Urine Fentanyl Screen Not Detected Acetaminophen Ur Barbiturates Screen POSITIVE H Ur Phencyclidine Scrn Not Detected Ur Amphetamines Screen Not Detected U Benzodiazepines Scrn Not Detected Urine Cocaine Screen Not Detected U Marijuana (THC) Screen Not Detected COVID-19 (SANG) COVID-19 Clin Com Hepatitis A IgG Ab Hepatitis A IgM Ab Hep Bs Antigen Hep Bs Antibody Hep B Core Total Ab Hepatitis C Ab (EIA) Blood Type Antibody Screen 01/07/23 01/07/23 08:17 08:17 MCV MCH MCHC RDW Plt Count MPV Absolute Nucleated RBC Nucleated RBC % (auto) PT 20.5 H INR 1.7 H APTT Anion Gap 15 Estim Creat Clear Calc 142.8 Estimated GFR > 60 Random Glucose 108 Calcium 7.5 L Magnesium Total Bilirubin 18.0 H Direct Bilirubin 12.1 H AST 322 H ALT 80 H Alkaline Phosphatase 325 H Ammonia Total Protein 6.3 L Albumin 2.6 L Urine Color Urine Appearance Urine pH Ur Specific [place] Urine Protein Urine Glucose (UA) Urine Ketones Urine Blood Urine Nitrite Ur Leukocyte Esterase Urine RBC Urine WBC Ur Squamous Epith Cells Urine Bacteria Hyaline Casts Salicylates Urine Opiates Screen Urine Fentanyl Screen Acetaminophen Ur Barbiturates Screen Ur Phencyclidine Scrn Ur Amphetamines Screen U Benzodiazepines Scrn Urine Cocaine Screen U Marijuana (THC) Screen COVID-19 ([facility]ANG) COVID-19 Clin Com Hepatitis A IgG Ab Hepatitis A IgM Ab Hep Bs Antigen Hep Bs Antibody Hep B Core Total Ab Hepatitis C Ab (EIA) Blood Type Antibody Screen Assessment and Plan (1) Alcohol withdrawal: Status: Acute (2) Thrombocytopenia: Status: Acute (3) Alcoholic hepatitis: Status: Acute (4) Alcohol use disorder: Status: Acute Plan 37-year-old male with a PMH significant for?alcoholic cirrhosis, esophageal varices, and alcohol withdrawal with seizures who presents to the ED seeking alcohol detox.? Patient will be admitted to the hospital on telemetry for treatment of acute alcohol withdrawal. Acute alcohol withdrawal overall feeling better, persistent mild tremors Continue phenobarb, multivitamin, folic acid 1mg, thiamine 100mg daily on IV Protonix bid will transition to by mouth, continue seizure precautions Addiction medicine consult Follow lyetes, Mag, BMP Transaminitis, hyperbilirubinemia likely due to acute decompensated Alcoholic hepatitis no abdominal pain, no nausea, no vomiting tolerating diet total bili trending up to 18, AST ALT trending down, low albumin 2.6, INR 1.7 plt 24 US of abdomen shows changes suggestive of hepatic steatosis or hepatocellular disease, MELD 22, GI recommend prednisone 40 mg daily, infection ruled out chest x-ray negative UA no bacteria, blood culture x2 pending Hep A IgM nonreactive ,Hep A IgG reactive, Hep B surface antibody positive , hepatitis-C nonreactive continue Ensure t.i.d. follow liver panel, INR, BMP daily follow GI recommendation. Thrombocytopenia platelets dropped from 43-24 no bleeding noted, follow CBC Prolonged QT EKG showed QTc of 514 Avoid QT-prolonging agents,repeat ekg Full Code DVT Prophylaxis: early ambulation avoid anticoagulation due to low platelets Pt will need continued inpatient hospitalization for acute decompensated hepatitis and acute alcohol withdrawal with IV phenobarbital. Time Spent With Patient Time: Total time managing care of this patient today ____ minutes. Quality Stroke Does the patient have a stroke diagnosis?: No VTE Prior VTE?: No VTE Risk Level:: Medical - moderate - high VTE Device Contraindication: Treatment Not Indicated VTE Drug Contraindication: N/A - Med Ordered
[2023-01-07] MEDS: predniSONE 20 MG TABLET 40 MG PO (11:58)
--- NOTE | 2023-01-07 12:25 | MHC.CM.PN ---
EMR REVIEWED, PER MD ROUNDS, PT NOT MEDICALLY CLEARED FOR DC (ACUTE HEPATITIS, ETOH WITHDRAWAL WITH IV PHENOBARB RX) CM WILL CONTINUE TO FOLLOW
--- NOTE | 2023-01-07 14:40 | MHC.RECOVRN ---
Briefly met with pt in 450 after consult placed to Addiction Medicine. Chart reviewed. Pt asleep, wakes to voice. Pt reports feeling a little better. Requesting to sleep. Will continue to follow. Keely Zhang APRN, aware.
--- NOTE | 2023-01-07 15:00 | P.PNGI_ITS ---
Subjective Subjective Date of Service: 01/07/23 Critical Care Time (minutes): 0 Comment: Patient seen and evaluated at bedside. Does not report any abdominal complaints to include abdominal pain, nausea, vomiting. Workup from today shows hemoglobin more or less stable. Platelet count 24. Chem 7 with sodium of 133. Total bilirubin has gone up to 18 while tr ansaminases are static. Hepatitis serologies have returned negative. urinalysis and chest x-ray reviewed. Blood cultures pending. Physical Exam Vital Signs: Vital Signs: Last Vital Signs Temp 98.9 F 01/07/23 11:15 Pulse 82 01/07/23 11:15 Resp 16 01/07/23 11:15 BP 118/65 01/07/23 11:15 Pulse Ox 94 01/07/23 11:15 O2 Del Method 01/07/23 11:15 BMI result Body Mass Index 25.8 General appearance: Grossly jaundiced, ill-appearing Abdomen: Soft, distended, nontender, no shifting dullness to percussion Neuro: Alert, oriented x3, no asterixis, fine tremors noted Objective Data Labs 01/07/23 08:17 01/07/23 08:17 Labs: Laboratory Results - last 24 hr 01/06/23 01/06/23 01/06/23 14:41 16:20 16:20 WBC RBC Hgb Hct MCV MCH MCHC RDW Plt Count MPV Absolute Nucleated RBC Nucleated RBC % (auto) PT INR Sodium Potassium Chloride Carbon Dioxide Anion Gap BUN Creatinine Estim Creat Clear Calc Estimated GFR Random Glucose Calcium Total Bilirubin Direct Bilirubin AST ALT Alkaline Phosphatase Total Protein Albumin Urine Color Urine Appearance Urine pH Ur Specific [place] Urine Protein Urine Glucose (UA) Urine Ketones Urine Blood Urine Nitrite Ur Leukocyte Esterase Urine RBC Urine WBC Ur Squamous Epith Cells Urine Bacteria Hyaline Casts Urine Opiates Screen Urine Fentanyl Screen Ur Barbiturates Screen Ur Phencyclidine Scrn Ur Amphetamines Screen U Benzodiazepines Scrn Urine Cocaine Screen U Marijuana (THC) Screen Hepatitis A IgG Ab REACTIVE Hepatitis A IgM Ab Nonreactive Nonreactive Hep Bs Antigen Negative Hep Bs Antibody REACTIVE Hep B Core Total Ab Nonreactive Hepatitis C Ab (EIA) Nonreactive Blood Type B Positive Antibody Screen NEGATIVE 01/06/23 01/06/23 01/07/23 17:16 17:16 08:17 WBC 3.9 L RBC 3.48 L Hgb 11.5 L Hct 34.2 L MCV 98.3 H MCH 33.0 MCHC 33.6 RDW 20.4 H Plt Count 24 L D MPV 9.0 L Absolute Nucleated RBC 0.000 Nucleated RBC % (auto) 0.0 PT INR Sodium Potassium Chloride Carbon Dioxide Anion Gap BUN Creatinine Estim Creat Clear Calc Estimated GFR Random Glucose Calcium Total Bilirubin Direct Bilirubin AST ALT Alkaline Phosphatase Total Protein Albumin Urine Color Dark Yellow Urine Appearance Turbid Urine pH 7.0 Ur Specific [place] 1.020 Urine Protein Trace Urine Glucose (UA) Negative Urine Ketones 15 Urine Blood Trace H Urine Nitrite Positive H Ur Leukocyte Esterase Small (1+) H Urine RBC 11-20 H Urine WBC 0-5 Ur Squamous Epith Cells 0-2 Urine Bacteria None Seen Hyaline Casts 0-2 Urine Opiates Screen Not Detected Urine Fentanyl Screen Not Detected Ur Barbiturates Screen POSITIVE H Ur Phencyclidine Scrn Not Detected Ur Amphetamines Screen Not Detected U Benzodiazepines Scrn Not Detected Urine Cocaine Screen Not Detected U Marijuana (THC) Screen Not Detected Hepatitis A IgG Ab Hepatitis A IgM Ab Hep Bs Antigen Hep Bs Antibody Hep B Core Total Ab Hepatitis C Ab (EIA) Blood Type Antibody Screen 01/07/23 01/07/23 08:17 08:17 WBC RBC Hgb Hct MCV MCH MCHC RDW Plt Count MPV Absolute Nucleated RBC Nucleated RBC % (auto) PT 20.5 H INR 1.7 H Sodium 133 L Potassium 3.6 Chloride 100 Carbon Dioxide 22 Anion Gap 15 BUN 7 L Creatinine 0.61 Estim Creat Clear Calc 142.8 Estimated GFR > 60 Random Glucose 108 Calcium 7.5 L Total Bilirubin 18.0 H Direct Bilirubin 12.1 H AST 322 H ALT 80 H Alkaline Phosphatase 325 H Total Protein 6.3 L Albumin 2.6 L Urine Color Urine Appearance Urine pH Ur Specific [place] Urine Protein Urine Glucose (UA) Urine Ketones Urine Blood Urine Nitrite Ur Leukocyte Esterase Urine RBC Urine WBC Ur Squamous Epith Cells Urine Bacteria Hyaline Casts Urine Opiates Screen Urine Fentanyl Screen Ur Barbiturates Screen Ur Phencyclidine Scrn Ur Amphetamines Screen U Benzodiazepines Scrn Urine Cocaine Screen U Marijuana (THC) Screen Hepatitis A IgG Ab Hepatitis A IgM Ab Hep Bs Antigen Hep Bs Antibody Hep B Core Total Ab Hepatitis C Ab (EIA) Blood Type Antibody Screen Procedures Date of Service Date of Service: 01/07/23 Progress Note: A&P Assessment and plan (1) Alcohol withdrawal: Status: Acute (2) Alcoholic hepatitis: Status: Acute (3) Alcohol use disorder: Status: Acute Plan Overall presentation consistent with acute alcohol withdrawal complicated by alcoholic hepatitis.? Likely has some degree of underlying liver fibrosis and possibly portal hypertension given the degree of thrombocytopenia, secondary to longstanding alcohol use disorder. MDF 45.9 MELD-Na 22 -Blood cultures still pending, however given uptrending bilirubin and low suspicion for underlying bacteremia reasonable to start prednisolone 40 mg to day. -Please follow results of blood cultures -Daily LFTs -We will check day 4 Lille's score to determine benefit of continuing corticosteroid therapy x 30 days. -No indication to warrant emergent upper endoscopy at this time, however if hemoglobin trends down, or patient demonstrates melena /hematemesis, low threshold to proceed with an EGD as he has history of previous varices. -Cont Ensure shakes TID -CIWA protocol. Avoid long-acting benzodiazepines.? Symptom triggered Ativan is okay. -Avoid all NSAIDS Time Spent With Patient Time: Total time managing care of this patient today ____ minutes. Quality Stroke Does the patient have a stroke diagnosis?: No VTE Prior VTE?: No VTE Risk Level:: Medical - moderate - high VTE Device Contraindication: Treatment Not Indicated VTE Drug Contraindication: N/A - Med Ordered
[2023-01-07] MEDS: Omeprazole 40 MG CAPSULE.DR PO (15:42)
--- NOTE | 2023-01-07 16:37 | P.EN_ITS ---
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 Not feeling well, requesting to sleep. Will follow up in the next day or two if appropriate. Time Spent With Patient Time: Total time managing care of this patient today ____ minutes.
[2023-01-08 02:53] VITALS: BP 109/64; PULSE 64; RESP 20; TEMP 36.8; O2SAT 92
[2023-01-08 05:47] LABS: Hematocrit 34.3 % (42.0-52.0); Hemoglobin 11.9 g/dl (14.0-18.0); Mean Corpuscular HGB Conc 34.7 g/dl (31.0-36.0); Mean Corpuscular Hemoglobin 33.4 pg (27.0-33.0); Mean Corpuscular Volume 96.3 fL (80.0-98.0); Mean Platelet Volume 9.2 fL (9.4-12.4); Red Blood Count 3.56 X10*6/uL (4.60-5.80); Red Cell Distribution Width 19.5 % (11.0-16.0); White Blood Count 5.6 X10*3/uL (4.8-10.8)
[2023-01-08 05:48] LABS: Platelet Count 25 X10*3/uL (160-400)
[2023-01-08] MEDS: Omeprazole 40 MG CAPSULE.DR PO ×2 (06:11→16:12)
[2023-01-08 06:27] LABS: Alanine Aminotransferase 66 U/L (0-40); Albumin Level 2.6 g/dL (3.5-5.0); Alkaline Phosphatase 375 U/L (39-117); Anion Gap 11 (12-20); Aspartate Amino Transferase 253 U/L (5-37); Bilirubin Direct 10.9 mg/dL (0.0-0.5); Bilirubin Total 15.8 mg/dL (0.0-1.0); Blood Urea Nitrogen 7 mg/dL (9-16); Calcium 7.6 mg/dL (8.4-10.2); Carbon Dioxide 23 mmol/L (22-29); Chloride 106 mmol/L (96-108); Creatinine Clr Calc Pharmacy 161.3; Estimated Glomerular Filt Rate > 60; Glucose Random 92 mg/dL (60-115); Potassium 3.6 mmol/L (3.3-5.1); Sodium 136 mmol/L (135-145); Total Protein 6.3 g/dL (6.5-8.0)
[2023-01-08 06:59] VITALS: BP 119/66; PULSE 75; RESP 20; TEMP 37.1; O2SAT 96
[2023-01-08] MEDS: predniSONE 20 MG TABLET 40 MG PO (08:33)
[2023-01-08] MEDS: busPIRone HCl 10 MG TABLET 20 MG PO ×2 (08:33→21:06)
[2023-01-08] MEDS: Thiamine HCL 100 MG TABLET PO (08:34)
[2023-01-08] MEDS: Folic Acid 1 MG TABLET PO (08:34)
[2023-01-08] MEDS: nadoloL 20 MG TABLET PO (08:34)
[2023-01-08] MEDS: PHENobarbitaL 15 MG TABLET 45 MG PO ×2 (08:34→21:06)
[2023-01-08] MEDS: Pyridoxine HCl (Vitamin B6) 50 MG TABLET 100 MG PO (08:34)
[2023-01-08] MEDS: Acamprosate Calcium 333 MG TABLET.DR PO ×3 (08:34→21:06)
[2023-01-08] MEDS: Sertraline HCL 50 MG TABLET 150 MG PO (08:34)
[2023-01-08] MEDS: 0.9 % Sodium Chloride Flush 3 ML SYRINGE IVFLUSH ×3 (08:37→21:07)
[2023-01-08 10:54] VITALS: BP 116/72; PULSE 74; RESP 20; TEMP 36.9; O2SAT 93
[2023-01-08 15:14] VITALS: BP 104/57; PULSE 68; RESP 14; TEMP 36.6; O2SAT 96
--- NOTE | 2023-01-08 15:27 | HO.PM.IMPN ---
Subjective Subjective Date of Service: 01/08/23 Interval History: Acute alcohol withdrawal,transamnitis Review of Systems Denies chest pain shortness of breath or abdominal pain or nausea Still feels anxious and tremulous. Physical Exam Vital Signs: Vital Signs: Last Vital Signs Temp 97.8 F 01/08/23 15:14 Pulse 68 01/08/23 15:14 Resp 14 01/08/23 15:14 BP 104/57 L 01/08/23 15:14 Pulse Ox 96 01/08/23 15:14 O2 Del Method 01/08/23 15:14 BMI result Body Mass Index 25.8 Appearance: Alert.? Oriented X3.?anxious/tramulous. Eyes: Pupils equal, round and reactive to light.? Sclera nicteric.? cvs: rrr, [id number]. res: clear to auscultation ,no rhonchii or wheezing abd: no rebound or guarding ,nt, bs present. ext pulses present , no cyanosis . neuro: axo3 , nonfocal. Objective Data Active Medications Acamprosate (Acamprosate Calcium 333 Mg Tablet.) 333 mg PO TID [facility] Last Admin: 01/08/23 15:14 Dose: 333 mg Documented By: GABRIELLE Buspirone HCl (Buspirone Hcl 10 Mg Tablet) 20 mg PO BID [facility] Last Admin: 01/08/23 08:33 Dose: 20 mg Documented By: GABRIELLE Docusate Sodium (Docusate Sodium 100 Mg Capsule) 100 mg PO DAILY PRN PRN Reason: Constipation Folic Acid (Folic Acid 1 Mg Tablet) 1 mg PO DAILY [facility] Stop: 01/09/23 15:59 Last Admin: 01/08/23 08:34 Dose: 1 mg Documented By: GABRIELLE Hydroxyzine HCl (Hydroxyzine Hcl 25 Mg Tablet) 25 mg PO Q6H PRN PRN Reason: anxiety Last Admin: 01/07/23 00:47 Dose: 25 mg Documented By: SERRANX Nadolol (Nadolol 20 Mg Tablet) 20 mg PO DAILY [facility]; Protocol Last Admin: 01/08/23 08:34 Dose: 20 mg Documented By: GABRIELLE Non-Formulary Medication (Atomoxetine) 1 cap PO DAILY [facility] Omeprazole (Omeprazole 40 Mg Capsule.) 40 mg PO BID@0630,1630 [facility] Last Admin: 01/08/23 06:11 Dose: 40 mg Documented By: SHAMEKA Pharmacy Consult (Consult Rx Perform Med Rec) 1 each MISCELLANE ONCE PRN PRN Reason: Consult order Pharmacy Consult (Consult Rx Etoh Phenob Im/Po) 1 each MISCELLANE ONCE PRN; Protocol PRN Reason: Consult order Phenobarbital (Phenobarbital 15 Mg Tablet) 45 mg PO BID [facility] Stop: 01/08/23 21:01 Last Admin: 01/08/23 08:34 Dose: 45 mg Documented By: GABRIELLE Phenobarbital (Phenobarbital 15 Mg Tablet) 15 mg PO BID [facility] Stop: 01/10/23 21:01 Phenobarbital (Phenobarbital 15 Mg Tablet) 15 mg PO DAILY [facility] Stop: 01/12/23 09:01 Prednisone (Prednisone 20 Mg Tablet) 40 mg PO DAILY [facility] Last Admin: 01/08/23 08:33 Dose: 40 mg Documented By: GABRIELLE Pyridoxine HCl (Pyridoxine Hcl (Vitamin B6) 50 Mg Tablet) 100 mg PO DAILY [facility] Last Admin: 01/08/23 08:34 Dose: 100 mg Documented By: GABRIELLE Sertraline HCl (Sertraline Hcl 50 Mg Tablet) 150 mg PO DAILY [facility] Last Admin: 01/08/23 08:34 Dose: 150 mg Documented By: GABRIELLE Sodium Chloride (0.9 % Sodium Chloride Flush 3 Ml Syringe) 3 ml IVFLUSH [facility] Last Admin: 01/08/23 08:37 Dose: 3 ml Documented By: GABRIELLE Sodium Chloride (0.9 % Sodium Chloride Flush 3 Ml Syringe) 3 ml IVFLUSH [facility] Last Admin: 01/08/23 08:37 Dose: Not Given Documented By: GABRIELLE Non-Admin Reason: Duplicate Order Thiamine HCl (Thiamine Hcl 100 Mg Tablet) 100 mg PO DAILY [facility] Stop: 01/09/23 16:14 Last Admin: 01/08/23 08:34 Dose: 100 mg Documented By: GABRIELLE Labs 01/08/23 05:41 01/08/23 05:41 Labs: Laboratory Results - last 24 hr 01/08/23 01/08/23 05:41 05:41 MCV 96.3 MCH 33.4 H MCHC 34.7 RDW 19.5 H Plt Count 25 L MPV 9.2 L Absolute Nucleated RBC 0.000 Nucleated RBC % (auto) 0.0 Anion Gap 11 L Estim Creat Clear Calc 161.3 Estimated GFR > 60 Random Glucose 92 Calcium 7.6 L Total Bilirubin 15.8 H Direct Bilirubin 10.9 H AST 253 H ALT 66 H Alkaline Phosphatase 375 H Total Protein 6.3 L Albumin 2.6 L Microbiology Microbiology Results: Microbiology 01/06/23 16:20 Blood Culture - Preliminary Blood - Venous No growth after 24 hours. 01/06/23 16:21 Blood Culture - Preliminary Blood - Venous No growth after 24 hours. Assessment and Plan (1) Alcohol withdrawal: Status: Acute (2) Thrombocytopenia: Status: Acute (3) Anemia: Status: Acute (4) Alcoholic hepatitis: Status: Acute Plan 37-year-old male with a PMH significant for?alcoholic cirrhosis, esophageal varices, and alcohol withdrawal with seizures who presents to the ED seeking alcohol detox.? Patient will be admitted to the hospital on telemetry for treatment of acute alcohol withdrawal. Acute alcohol withdrawal overall feeling better, persistent mild tremors Continue phenobarb, multivitamin, folic acid 1mg, thiamine 100mg daily on IV Protonix bid will transition to by mouth, continue seizure precautions Addiction medicine consult Follow lyetes, Mag, BMP Transaminitis, hyperbilirubinemia likely due to? acute decompensated Alcoholic hepatitis ?no abdominal pain, no nausea, no vomiting tolerating diet ?total bili trending down to 15, AST ALT trending down, low albumin 2.6, INR 1.7 plt 24 US of abdomen shows? changes? suggestive of hepatic steatosis or hepatocellular disease, MELD? 22, GI recommend prednisone 40 mg daily,? infection ruled out chest x-ray negative UA no bacteria, blood culture x2 pending Hep A IgM? nonreactive ,Hep A IgG reactive, Hep B surface antibody positive , hepatitis-C nonreactive continue Ensure t.i.d. follow? liver panel, INR, BMP daily follow GI recommendation. anemia/Thrombocytopenia platelets dropped from 43-24-25, no bleeding noted, follow CBC Prolonged QT EKG showed QTc of 514 qt is 463 ms Avoid QT-prolonging agents Full Code DVT Prophylaxis:? early ambulation avoid anticoagulation due to low platelets inpatient hospitalization for acute decompensated? hepatitis and acute alcohol withdrawal with IV phenobarbital. Time Spent With Patient Time: Total time managing care of this patient today ____ minutes. Quality Stroke Does the patient have a stroke diagnosis?: No VTE Prior VTE?: No VTE Risk Level:: Medical - moderate - high VTE Device Contraindication: Treatment Not Indicated VTE Drug Contraindication: N/A - Med Ordered
--- NOTE | 2023-01-08 15:36 | P.CDIM_ITS ---
PROVIDER RESPONSE TEXT: To clarify, the appropriate diagnosis supported by the clinical indicators: Other if known: anemia/thrombocytopenia QUERY TEXT: PHYSICIAN'S DOCUMENTATION REQUEST Date of Query: 01/08/2023 12:01 PM EST Patient Name: Jeffrey Guerra Admit Date: 01/07/2023 Dear Suzanne Lau, A review of the medical record indicates additional documentation may be needed. Please review below and update the documentation accordingly. Clinical Indicators: LABS: WBC 3.9 RBC 3.48 PLT 24 L Alcohol abuse with hepatitis, thrombocytopenia Nutrition: receiving supplements to diet. Based on the above, could you clarify the appropriate diagnosis, if significant, that supports the ab ove abnormalities and additional evaluation, monitoring, and/or treatment rendered: Pancytopenia Other if known Other (explain) Clinically unable to determine (explain) Thank you, Eunice Arora, CCS, CDIS Use of terms such as suspected, likely, concern for, or probable (associated with a specific diagnosi s that is being evaluated, monitored, or treated as if it exists) are acceptable and can be coded in the inpatient se tting, when documented at the time of discharge. Please use your independent medical judgment in providing your response. THIS QUERY IS PART OF THE PERMANENT MEDICAL RECORD
[2023-01-08] MEDS: Phytonadione (Vit K1) Oral 10 MG/ML AMPUL 5 MG PO (16:11)
[2023-01-08] MEDS: Albumin Human 25 % 100 ML IV ×2 (16:13→21:16)
[2023-01-08 19:04] VITALS: BP 117/70; PULSE 75; RESP 14; TEMP 37.1; O2SAT 96
[2023-01-08 23:29] VITALS: BP 124/65; PULSE 70; RESP 16; TEMP 37.5; O2SAT 94
[2023-01-09 02:41] VITALS: PULSE 65; O2SAT 96
[2023-01-09] MEDS: Omeprazole 40 MG CAPSULE.DR PO ×2 (05:56→16:22)
[2023-01-09] MEDS: Albumin Human 25 % 100 ML IV ×2 (05:56→09:59)
[2023-01-09 07:21] VITALS: BP 121/63; PULSE 90; RESP 20; TEMP 36.9; O2SAT 98
[2023-01-09 09:21] LABS: Hematocrit 33.2 % (42.0-52.0); Hemoglobin 11.5 g/dl (14.0-18.0)
[2023-01-09 09:22] LABS: Platelet Count 36 X10*3/uL (160-400)
[2023-01-09 09:28] LABS: INTERNATIONAL NORM RATIO 2.2 (0.9-1.1); Prothrombin Time 26.4 SEC (10.0-13.1)
[2023-01-09 09:37] LABS: Alanine Aminotransferase 49 U/L (0-40); Albumin Level 3.3 g/dL (3.5-5.0); Alkaline Phosphatase 338 U/L (39-117); Aspartate Amino Transferase 148 U/L (5-37); Bilirubin Direct 9.4 mg/dL (0.0-0.5); Bilirubin Total 13.3 mg/dL (0.0-1.0); Total Protein 6.5 g/dL (6.5-8.0)
[2023-01-09] MEDS: Potassium Chloride Packet 20 MEQ PACKET PO (09:56)
[2023-01-09] MEDS: busPIRone HCl 10 MG TABLET 20 MG PO ×2 (09:57→21:23)
[2023-01-09] MEDS: nadoloL 20 MG TABLET PO (09:58)
[2023-01-09] MEDS: Pyridoxine HCl (Vitamin B6) 50 MG TABLET 100 MG PO (09:58)
[2023-01-09] MEDS: Sertraline HCL 50 MG TABLET 150 MG PO (09:58)
[2023-01-09] MEDS: PHENobarbitaL 15 MG TABLET PO ×2 (09:58→21:23)
[2023-01-09] MEDS: Folic Acid 1 MG TABLET PO (09:58)
[2023-01-09] MEDS: Acamprosate Calcium 333 MG TABLET.DR PO ×3 (09:58→21:23)
[2023-01-09] MEDS: Thiamine HCL 100 MG TABLET PO (09:58)
[2023-01-09] MEDS: predniSONE 20 MG TABLET 40 MG PO (09:58)
[2023-01-09] MEDS: 0.9 % Sodium Chloride Flush 3 ML SYRINGE IVFLUSH ×2 (09:59→16:22)
[2023-01-09 11:15] VITALS: BP 117/65; PULSE 91; RESP 20; TEMP 36.9; O2SAT 97
--- NOTE | 2023-01-09 11:46 | MHC.CM.PN ---
EMR REVIEWED AND PER MD ROUNDS, PT IS NOT MEDICALLY CLEARED FOR DC (DECOMPENSATED HEPATITIS,ETOH WITHDRAWAL PROTOCOL) CM WILL CONTINUE TO FOLLOW
--- NOTE | 2023-01-09 12:52 | HO.ADDICT_ITS ---
History of Present Illness Date of Service: 01/09/2023 Chief Complaint: ETOH withdrawal HPI Narrative: Patient is a 37 year old male with long history of alcohol use disorder Currently medically admitted with alcohol withdrawal and acute hepatitis Patient seen in room 450, awake, alert, and engaged in interview. He reports he has been drinking for several years on and off, with longest period in recovery being 19 months, immediately following the of his daughter. He has been to different levels of treatment, most recently at sober home through the summer, returned home in July and soon after began drinking again. Amount of alcohol he drinks daily varies, but drinks approx, half a handle of vodka daily. He is familiar with different treatment modalities for AUD, and is currently taking Campral. He reports that when he took this medication consistently it was helpful. Somewhat constricted/guarded affect, expressing that he would like to continue with treatment following [place] [facility]. Identifies family and close friends as supportive. Review of Systems Constitutional: Reports as per HPI Diagnostics Vital Signs (24Hr): Vital Signs - 24 hr 01/08/23 15:14 01/08/23 19:04 01/08/23 23:29 Temperature 97.8 F 98.8 F 99.5 F Pulse Rate 68 75 70 Respiratory Rate 14 14 16 Blood Pressure 104/57 L 117/70 124/65 Pulse Oximetry 96 96 94 Oxygen Delivery Method Room Air Room Air Room Air 01/09/23 02:41 01/09/23 07:21 01/09/23 11:15 Temperature 98.5 F 98.4 F Pulse Rate 65 90 91 Respiratory Rate 20 20 Blood Pressure 121/63 117/65 Pulse Oximetry 96 98 97 Oxygen Delivery Method Room Air Room Air Room Air BMI result Body Mass Index 25.8 Labs 01/09/23 09:08 01/08/23 05:41 Labs: Laboratory Results - last 48 hr 01/08/23 01/08/23 01/09/23 05:41 05:41 09:08 WBC 5.6 RBC 3.56 L Hgb 11.9 L 11.5 L Hct 34.3 L 33.2 L MCV 96.3 MCH 33.4 H MCHC 34.7 RDW 19.5 H Plt Count 25 L 36 L D MPV 9.2 L Absolute Nucleated RBC 0.000 Nucleated RBC % (auto) 0.0 PT INR Sodium 136 Potassium 3.6 Chloride 106 Carbon Dioxide 23 Anion Gap 11 L BUN 7 L Creatinine 0.54 Estim Creat Clear Calc 161.3 Estimated GFR > 60 Random Glucose 92 Calcium 7.6 L Total Bilirubin 15.8 H Direct Bilirubin 10.9 H AST 253 H ALT 66 H Alkaline Phosphatase 375 H Total Protein 6.3 L Albumin 2.6 L 01/09/23 01/09/23 09:08 09:08 WBC RBC Hgb Hct MCV MCH MCHC RDW Plt Count MPV Absolute Nucleated RBC Nucleated RBC % (auto) PT 26.4 H INR 2.2 H Sodium Potassium Chloride Carbon Dioxide Anion Gap BUN Creatinine Estim Creat Clear Calc Estimated GFR Random Glucose Calcium Total Bilirubin 13.3 H Direct Bilirubin 9.4 H AST 148 H ALT 49 H Alkaline Phosphatase 338 H Total Protein 6.5 Albumin 3.3 L Imaging Radiology Impressions: ITS Impressions Abdomen Ultrasound 01/06/23 11:31 IMPRESSION: 1. Increased liver parenchymal echogenicity suggestive of hepatic steatosis or hepatocellular disease. 2. Nonspecific gallbladder wall thickening. This can be seen in the setting of liver disease. No cholelithiasis. Chest X-Ray 01/06/23 15:47 IMPRESSION: No acute cardiopulmonary process. Mental Status Exam Mental Status Exam Patient Appearance: Unkempt Level of Consciousness: Awake, Appropriate and Alert Mood Description: Constricted Affect Description: Constricted Medications Medications Current Medications Acamprosate (Acamprosate Calcium 333 Mg Tablet.) 333 mg PO TID [facility] Last Admin: 01/09/23 09:58 Dose: 333 mg Buspirone HCl (Buspirone Hcl 10 Mg Tablet) 20 mg PO BID [facility] Last Admin: 01/09/23 09:57 Dose: 20 mg Docusate Sodium (Docusate Sodium 100 Mg Capsule) 100 mg PO DAILY PRN PRN Reason: Constipation Folic Acid (Folic Acid 1 Mg Tablet) 1 mg PO DAILY [facility] Stop: 01/09/23 15:59 Last Admin: 01/09/23 09:58 Dose: 1 mg Hydroxyzine HCl (Hydroxyzine Hcl 25 Mg Tablet) 25 mg PO Q6H PRN PRN Reason: anxiety Last Admin: 01/07/23 00:47 Dose: 25 mg Phytonadione 10 mg/ Sodium (Chloride) 51 mls @ 51 mls/hr IV ONCE ONE Stop: 01/09/23 13:16 Nadolol (Nadolol 20 Mg Tablet) 20 mg PO DAILY [facility]; Protocol Last Admin: 01/09/23 09:58 Dose: 20 mg Non-Formulary Medication (Atomoxetine) 1 cap PO DAILY [facility] Omeprazole (Omeprazole 40 Mg Capsule.Dr) 40 mg PO BID@0630,1630 [facility] Last Admin: 01/09/23 05:56 Dose: 40 mg Pharmacy Consult (Consult Rx Perform Med Rec) 1 each MISCELLANE ONCE PRN PRN Reason: Consult order Pharmacy Consult (Consult Rx Etoh Phenob Im/Po) 1 each MISCELLANE ONCE PRN; Protocol PRN Reason: Consult order Phenobarbital (Phenobarbital 15 Mg Tablet) 15 mg PO BID [facility] Stop: 01/10/23 21:01 Last Admin: 01/09/23 09:58 Dose: 15 mg Phenobarbital (Phenobarbital 15 Mg Tablet) 15 mg PO DAILY [facility] Stop: 01/12/23 09:01 Prednisone (Prednisone 20 Mg Tablet) 40 mg PO DAILY [facility] Last Admin: 01/09/23 09:58 Dose: 40 mg Pyridoxine HCl (Pyridoxine Hcl (Vitamin B6) 50 Mg Tablet) 100 mg PO DAILY [facility] Last Admin: 01/09/23 09:58 Dose: 100 mg Sertraline HCl (Sertraline Hcl 50 Mg Tablet) 150 mg PO DAILY [facility] Last Admin: 01/09/23 09:58 Dose: 150 mg Sodium Chloride (0.9 % Sodium Chloride Flush 3 Ml Syringe) 3 ml IVFLUSH QSHIFT [facility] Last Admin: 01/09/23 09:59 Dose: 3 ml Sodium Chloride (0.9 % Sodium Chloride Flush 3 Ml Syringe) 3 ml IVFLUSH QSSCFT [facility] Last Admin: 01/09/23 09:59 Dose: Not Given Thiamine HCl (Thiamine Hcl 100 Mg Tablet) 100 mg PO DAILY [facility] Stop: 01/09/23 16:14 Last Admin: 01/09/23 09:58 Dose: 100 mg Allergies Allergies Allergy/AdvReac Type Severity Reaction Status Date / Time sulfamethoxazole Allergy Unknown Verified 01/06/23 10:01 [From Bactrim] trimethoprim [From Bactrim] Allergy Unknown Verified 01/06/23 10:01 Assessment & Plan Assessment & Plan (1) Alcohol use disorder: Status: Acute Code(s): F10.90 - Alcohol use, unspecified, uncomplicated Assessment and Plan: * continue campral * will continue to follow--unclear when discharge will be, if appropriate, will assist with CSS placement Total time managing care of this patient today __30__ minutes. PMFSH Past Medical History Medical History ETOH abuse Social History Social History Household Members: Family Housing: House Do you presently have visiting nurse or other home services: No Alcohol intake: current Alcohol intake frequency: 3 or more drinks per day Alcohol type: hard liquor Patient Tobacco Use Status: Never used Tobacco Smoked in Last 30 Days: No Second Hand Smoke Exposure: Yes Use of substances other than those prescribed or required for medical reasons: No Currently Displaying Signs/Symptoms of Drug Intoxication Withdrawal: No Any prior treatment program specific to substance use: No Have you been hit, kicked, punched, or otherwise hurt by someone within the past year? If so, by whom?: No Do you feel safe in your current relationship?: Yes Is there a partner from a previous relationship who is making you feel unsafe now?: No Are you made to feel afraid or neglected: No Advance Directives: Yes Advance Directives Information Provided: Yes Advance Directives on File: No Advance Directives Date on File: 01/07/23 Do you have thoughts of harming others: None Do you have a plan to hurt others: No Plan Recently lost weight without trying: No Eating poorly because of decreased appetite: Yes Nutrition Risks: No Nutritional Risk Poor oral hygiene: No service: No Current occupational status: disabled
--- NOTE | 2023-01-09 13:06 | P.PNGI_ITS ---
Subjective Subjective Date of Service: 01/09/23 Critical Care Time (minutes): 0 Comment: Patient seen and evaluated at bedside. Was being evaluated by Ms Keely Zhang. Does not report any abdominal complaints to include abdominal pain, nausea, vomiting. Workup from today shows hemoglobin more or less stable. Bili improving and down to 13.3 while INR has gone up. Blood cultures NGTD. Physical Exam Vital Signs: Vital Signs: Last Vital Signs Temp 98.4 F 01/09/23 11:15 Pulse 91 01/09/23 11:15 Resp 20 01/09/23 11:15 BP 117/65 01/09/23 11:15 Pulse Ox 97 01/09/23 11:15 O2 Del Method 01/09/23 11:15 BMI result Body Mass Index 25.8 General appearance: Grossly jaundiced, ill-appearing Abdomen: Soft, distended, nontender, no shifting dullness to percussion Neuro: Alert, oriented x3, no asterixis, fine tremors noted Objective Data Labs 01/09/23 09:08 01/08/23 05:41 Labs: Laboratory Results - last 24 hr 01/09/23 01/09/23 01/09/23 09:08 09:08 09:08 Hgb 11.5 L Hct 33.2 L Plt Count 36 L D PT 26.4 H INR 2.2 H Total Bilirubin 13.3 H Direct Bilirubin 9.4 H AST 148 H ALT 49 H Alkaline Phosphatase 338 H Total Protein 6.5 Albumin 3.3 L Microbiology Microbiology Results: Microbiology 01/06/23 16:20 Blood - Venous Blood Culture - Preliminary No growth after 48 hours. 01/06/23 16:21 Blood - Venous Blood Culture - Preliminary No growth after 48 hours. Procedures Date of Service Date of Service: 01/09/23 Progress Note: A&P Assessment and plan (1) Alcohol withdrawal: Status: Acute (2) Alcoholic hepatitis: Status: Acute (3) Alcohol use disorder: Status: Acute Plan Overall presentation consistent with acute alcohol withdrawal complicated by al coholic hepatitis.? Likely has some degree of underlying liver fibrosis and possibly portal hypertension given the degree of thrombocytopenia, secondary to longstanding alcohol use disorder. Admission MDF 45.9 and MELD-Na 22 Recommendations: -Daily MELD labs including INR -We will check day 4 Lille's score (due on 01/10) to determine benefit of continuing corticosteroid therapy x 30 days. -Please give IV Vit K 10mg today to exclude malnutrition related coagulopathy. Can repeat tmrw if INR unchanged. -No indication to warrant emergent upper endoscopy at this time, however if hemoglobin trends down, or patient demonstrates melena /hematemesis, low threshold to proceed with an EGD as he has history of previous varices. -Cont Ensure shakes TID Time Spent With Patient Time: Total time managing care of this patient today ____ minutes. Quality Stroke Does the patient have a stroke diagnosis?: No VTE Prior VTE?: No VTE Risk Level:: Medical - moderate - high VTE Device Contraindication: Treatment Not Indicated VTE Drug Contraindication: N/A - Med Ordered
[2023-01-09] MEDS: Phytonadione (Vit K1) 10 MG in 0.9 % Sodium Chloride 50 ML 51 MG IV (13:09)
--- NOTE | 2023-01-09 14:12 | P.PNIM_ITS ---
Subjective Subjective Date of Service: 01/09/23 Interval History: Acute alcohol withdrawal,transamnitis, coagulopathy Review of Systems Denies chest pain shortness of breath or abdominal pain or nausea Still feels anxious and tremulous. Physical Exam Vital Signs: Vital Signs: Last Vital Signs Temp 98.4 F 01/09/23 11:15 Pulse 91 01/09/23 11:15 Resp 20 01/09/23 11:15 BP 117/65 01/09/23 11:15 Pulse Ox 97 01/09/23 11:15 O2 Del Method 01/09/23 11:15 BMI result Body Mass Index 25.8 Appearance: Alert.? Oriented X3.?anxious/tramulous. Eyes: Pupils equal, round and reactive to light.? Sclera nicteric.? cvs: rrr, [id number]. res: clear to auscultation ,no rhonchii or wheezing abd: no rebound or guarding ,nt, bs present. ext pulses present , no cyanosis . neuro: axo3 , nonfocal. Objective Data Active Medications Acamprosate (Acamprosate Calcium 333 Mg Tablet.) 333 mg PO TID [facility] Last Admin: 01/09/23 09:58 Dose: 333 mg Documented By: GABRIELLE Buspirone HCl (Buspirone Hcl 10 Mg Tablet) 20 mg PO BID [facility] Last Admin: 01/09/23 09:57 Dose: 20 mg Documented By: GABRIELLE Docusate Sodium (Docusate Sodium 100 Mg Capsule) 100 mg PO DAILY PRN PRN Reason: Constipation Folic Acid (Folic Acid 1 Mg Tablet) 1 mg PO DAILY [facility] Stop: 01/09/23 15:59 Last Admin: 01/09/23 09:58 Dose: 1 mg Documented By: GABRIELLE Hydroxyzine HCl (Hydroxyzine Hcl 25 Mg Tablet) 25 mg PO Q6H PRN PRN Reason: anxiety Last Admin: 01/07/23 00:47 Dose: 25 mg Documented By: SERRANX Nadolol (Nadolol 20 Mg Tablet) 20 mg PO DAILY [facility]; Protocol Last Admin: 01/09/23 09:58 Dose: 20 mg Documented By: GABRIELLE Non-Formulary Medication (Atomoxetine) 1 cap PO DAILY [facility] Omeprazole (Omeprazole 40 Mg Capsule.) 40 mg PO BID@0630,1630 [facility] Last Admin: 01/09/23 05:56 Dose: 40 mg Documented By: BARBIE Pharmacy Consult (Consult Rx Perform Med Rec) 1 each MISCELLANE ONCE PRN PRN Reason: Consult order Pharmacy Consult (Consult Rx Etoh Phenob Im/Po) 1 each MISCELLANE ONCE PRN; Protocol PRN Reason: Consult order Phenobarbital (Phenobarbital 15 Mg Tablet) 15 mg PO BID [facility] Stop: 01/10/23 21:01 Last Admin: 01/09/23 09:58 Dose: 15 mg Documented By: GABRIELLE Phenobarbital (Phenobarbital 15 Mg Tablet) 15 mg PO DAILY [facility] Stop: 01/12/23 09:01 Prednisone (Prednisone 20 Mg Tablet) 40 mg PO DAILY [facility] Last Admin: 01/09/23 09:58 Dose: 40 mg Documented By: GABRIELLE Pyridoxine HCl (Pyridoxine Hcl (Vitamin B6) 50 Mg Tablet) 100 mg PO DAILY [facility] Last Admin: 01/09/23 09:58 Dose: 100 mg Documented By: GABRIELLE Sertraline HCl (Sertraline Hcl 50 Mg Tablet) 150 mg PO DAILY [facility] Last Admin: 01/09/23 09:58 Dose: 150 mg Documented By: GABRIELLE Sodium Chloride (0.9 % Sodium Chloride Flush 3 Ml Syringe) 3 ml IVFLUSH [facility] Last Admin: 01/09/23 09:59 Dose: 3 ml Documented By: GABRIELLE Sodium Chloride (0.9 % Sodium Chloride Flush 3 Ml Syringe) 3 ml IVFLUSH [facility] Last Admin: 01/09/23 09:59 Dose: Not Given Documented By: GABRIELLE Non-Admin Reason: duplicate order Thiamine HCl (Thiamine Hcl 100 Mg Tablet) 100 mg PO DAILY [facility] Stop: 01/09/23 16:14 Last Admin: 01/09/23 09:58 Dose: 100 mg Documented By: GABRIELLE Labs 01/09/23 09:08 01/08/23 05:41 Labs: Laboratory Results - last 24 hr 01/09/23 01/09/23 01/09/23 09:08 09:08 09:08 Plt Count 36 L D PT 26.4 H INR 2.2 H Total Bilirubin 13.3 H Direct Bilirubin 9.4 H AST 148 H ALT 49 H Alkaline Phosphatase 338 H Total Protein 6.5 Albumin 3.3 L Microbiology Microbiology Results: Microbiology 01/06/23 16:20 Blood Culture - Preliminary Blood - Venous No growth after 48 hours. 01/06/23 16:21 Blood Culture - Preliminary Blood - Venous No growth after 48 hours. Assessment and Plan (1) Alcohol withdrawal: Status: Acute (2) Thrombocytopenia: Status: Acute (3) Anemia: Status: Acute (4) Alcoholic hepatitis: Status: Acute Plan 37-year-old male with a PMH significant for?alcoholic cirrhosis, esophageal varices, and alcohol withdrawal with seizures who presents to the ED seeking alcohol detox.? Patient will be admitted to the hospital on telemetry for treatment of acute alcohol withdrawal. Acute alcohol withdrawal overall feeling better, persistent mild tremors Continue phenobarb, multivitamin, folic acid 1mg, thiamine 100mg daily on IV Protonix bid will transition to by mouth, continue seizure precautions Addiction medicine consult Follow lyetes, Mag, BMP Transaminitis, hyperbilirubinemia likely due to? acute decompensated Alcoholic hepatitis ?no abdominal pain, no nausea, no vomiting tolerating diet ?total bili trending down to 13, AST ALT trending down, low albumin 2.6, INR 2. plt 35 US of abdomen shows? changes? suggestive of hepatic steatosis or hepatocellular disease, MELD? 22, GI recommend prednisone 40 mg daily,? infection ruled out chest x-ray negative UA no bacteria, blood culture x2 pending Hep A IgM? nonreactive ,Hep A IgG reactive, Hep B surface antibody positive , hepatitis-C nonreactive continue Ensure t.i.d. follow? liver panel, INR, BMP daily-also check dilip score on thursday. follow GI recommendation. anemia/Thrombocytopenia platelets dropped from 43-24-25, no bleeding noted, follow CBC Prolonged QT EKG showed QTc of 514 qt is 463 ms Avoid QT-prolonging agents Full Code DVT Prophylaxis:? early ambulation avoid anticoagulation due to low platelets inpatient hospitalization for acute decompensated? hepatitis and acute alcohol withdrawal with IV phenobarbital. Time Spent With Patient Time: Total time managing care of this patient today ____ minutes. Quality Stroke Does the patient have a stroke diagnosis?: No VTE Prior VTE?: No VTE Risk Level:: Medical - moderate - high VTE Device Contraindication: Treatment Not Indicated VTE Drug Contraindication: N/A - Med Ordered
[2023-01-09 15:10] VITALS: BP 116/74; PULSE 65; RESP 15; TEMP 36.4; O2SAT 97
[2023-01-09 18:44] VITALS: BP 129/82; PULSE 74; RESP 14; TEMP 36.7; O2SAT 97
[2023-01-10] VITALS (7 sets, daily range): BP systolic 114–136; BP diastolic 70–86; PULSE 63–79; RESP 14–20; TEMP 36.1–37.5; O2SAT 94–97
[2023-01-10] MEDS: 0.9 % Sodium Chloride Flush 3 ML SYRINGE IVFLUSH ×6 (00:18→19:15)
[2023-01-10] MEDS: Omeprazole 40 MG CAPSULE.DR PO ×2 (05:55→16:28)
[2023-01-10] MEDS: busPIRone HCl 10 MG TABLET 20 MG PO ×2 (07:47→20:37)
[2023-01-10] MEDS: PHENobarbitaL 15 MG TABLET PO ×2 (07:47→20:37)
[2023-01-10] MEDS: predniSONE 20 MG TABLET 40 MG PO (07:47)
[2023-01-10] MEDS: Acamprosate Calcium 333 MG TABLET.DR PO ×3 (07:47→20:38)
[2023-01-10] MEDS: Sertraline HCL 50 MG TABLET 150 MG PO (07:47)
[2023-01-10] MEDS: nadoloL 20 MG TABLET PO (07:48)
[2023-01-10] MEDS: Pyridoxine HCl (Vitamin B6) 50 MG TABLET 100 MG PO (07:48)
[2023-01-10] MEDS: Phytonadione (Vit K1) 10 MG in 0.9 % Sodium Chloride 50 ML 51 MG IV (08:19)
--- NOTE | 2023-01-10 10:54 | MHC.RECOVRN ---
This creative services writer met w/ patient, patient alert, sitting in bed, watching television. T/W and patient discussed d/c plan. Patient interested in [facility] level of care. Patient reports [employer], completed intake at [facility] detox with plans of going to CSS at [facility]. Patient request referral for [facility] level of care sent to [facility]. Patient agreeable to CSS referral sent to [facility]. T/W placed referrals to [facility].
--- NOTE | 2023-01-10 11:10 | P.PNIM_ITS ---
Subjective Subjective Date of Service: 01/10/23 Interval History: Acute alcohol withdrawal,transamnitis, coagulopathy Review of Systems Denies chest pain shortness of breath or abdominal pain or nausea Still feels anxious and tremulous. Physical Exam Vital Signs: Vital Signs: Last Vital Signs Temp 99.2 F 01/10/23 11:06 Pulse 63 01/10/23 11:06 Resp 14 01/10/23 11:06 BP 135/84 01/10/23 11:06 Pulse Ox 96 01/10/23 11:06 O2 Del Method 01/10/23 11:06 BMI result Body Mass Index 25.8 Appearance: Alert.? Oriented X3.?anxious/tramulous. Eyes: Pupils equal, round and reactive to light.? Sclera nicteric.? cvs: rrr, [id number]. res: clear to auscultation ,no rhonchii or wheezing abd: no rebound or guarding ,nt, bs present. ext pulses present , no cyanosis . neuro: axo3 , nonfocal. Objective Data Active Medications Acamprosate (Acamprosate Calcium 333 Mg Tablet.) 333 mg PO TID [facility] Last Admin: 01/10/23 07:47 Dose: 333 mg Documented By: ART Buspirone HCl (Buspirone Hcl 10 Mg Tablet) 20 mg PO BID [facility] Last Admin: 01/10/23 07:47 Dose: 20 mg Documented By: ART Docusate Sodium (Docusate Sodium 100 Mg Capsule) 100 mg PO DAILY PRN PRN Reason: Constipation Hydroxyzine HCl (Hydroxyzine Hcl 25 Mg Tablet) 25 mg PO Q6H PRN PRN Reason: anxiety Last Admin: 01/07/23 00:47 Dose: 25 mg Documented By: SERRANX Nadolol (Nadolol 20 Mg Tablet) 20 mg PO DAILY [facility]; Protocol Last Admin: 01/10/23 07:48 Dose: 20 mg Documented By: ART Non-Formulary Medication (Atomoxetine) 1 cap PO DAILY [facility] Omeprazole (Omeprazole 40 Mg Capsule.) 40 mg PO BID@0630,1630 [facility] Last Admin: 01/10/23 05:55 Dose: 40 mg Documented By: ASAD Pharmacy Consult (Consult Rx Perform Med Rec) 1 each MISCELLANE ONCE PRN PRN Reason: Consult order Pharmacy Consult (Consult Rx Etoh Phenob Im/Po) 1 each MISCELLANE ONCE PRN; Protocol PRN Reason: Consult order Phenobarbital (Phenobarbital 15 Mg Tablet) 15 mg PO BID [facility] Stop: 01/10/23 21:01 Last Admin: 01/10/23 07:47 Dose: 15 mg Documented By: ART Phenobarbital (Phenobarbital 15 Mg Tablet) 15 mg PO DAILY [facility] Stop: 01/12/23 09:01 Prednisone (Prednisone 20 Mg Tablet) 40 mg PO DAILY [facility] Last Admin: 01/10/23 07:47 Dose: 40 mg Documented By: ART Pyridoxine HCl (Pyridoxine Hcl (Vitamin B6) 50 Mg Tablet) 100 mg PO DAILY [facility] Last Admin: 01/10/23 07:48 Dose: 100 mg Documented By: ART Sertraline HCl (Sertraline Hcl 50 Mg Tablet) 150 mg PO DAILY [facility] Last Admin: 01/10/23 07:47 Dose: 150 mg Documented By: ART Sodium Chloride (0.9 % Sodium Chloride Flush 3 Ml Syringe) 3 ml IVFLUSH QSGAFT [facility] Last Admin: 01/10/23 08:19 Dose: 3 ml Documented By: ART Sodium Chloride (0.9 % Sodium Chloride Flush 3 Ml Syringe) [facility] Last Admin: 01/10/23 00:18 Dose: Not Given Documented By: ASAD Non-Admin Reason: Duplicate Order Labs 01/09/23 09:08 01/08/23 05:41 Assessment and Plan (1) Alcohol withdrawal: Status: Acute (2) Alcoholic hepatitis: Status: Acute (3) Thrombocytopenia: Status: Acute (4) Anemia: Status: Acute Plan 37-year-old male with a PMH significant for?alcoholic cirrhosis, esophageal varices, and alcohol withdrawal with seizures who presents to the ED seeking alcohol detox.? Patient will be admitted to the hospital on telemetry for treatment of acute alcohol withdrawal. Acute alcohol withdrawal overall feeling better, persistent mild tremors Continue phenobarb, multivitamin, folic acid 1mg, thiamine 100mg daily on IV Protonix bid will transition to by mouth, continue seizure precautions Addiction medicine consult Follow lyetes, Mag, BMP Transaminitis, hyperbilirubinemia likely due to? acute decompensated Alcoholic hepatitis ?no abdominal pain, no nausea, no vomiting tolerating diet ?total bili trending down to 13, AST ALT trending down, low albumin 2.6, INR 2. plt 35 US of abdomen shows? changes? suggestive of hepatic steatosis or hepatocellular disease, MELD? 22, GI recommend prednisone 40 mg daily,? infection ruled out chest x-ray negative UA no bacteria, blood culture x2 pending Hep A IgM? nonreactive ,Hep A IgG reactive, Hep B surface antibody positive , hepatitis-C nonreactive continue Ensure t.i.d.,on prednisone, also added iv vit K for coagulopathy. follow? liver panel, INR, BMP daily-also check dilip score on thursday. follow GI recommendation. anemia/Thrombocytopenia platelets dropped from 43-24-25, no bleeding noted, follow CBC Prolonged QT EKG showed QTc of 514 tele today-qt is 428 ms Avoid QT-prolonging agents Full Code DVT Prophylaxis:? early ambulation avoid anticoagulation due to low platelets ?inpatient hospitalization for acute decompensated? hepatitis and acute alcohol withdrawal with phenobarb. Time Spent With Patient Time: Total time managing care of this patient today ____ minutes. Quality Stroke Does the patient have a stroke diagnosis?: No VTE Prior VTE?: No VTE Risk Level:: Medical - moderate - high VTE Device Contraindication: Treatment Not Indicated VTE Drug Contraindication: N/A - Med Ordered
[2023-01-10 16:58] LABS: Alanine Aminotransferase 49 U/L (0-40); Albumin Level 3.5 g/dL (3.5-5.0); Alkaline Phosphatase 340 U/L (39-117); Aspartate Amino Transferase 135 U/L (5-37); Bilirubin Direct 8.8 mg/dL (0.0-0.5); Bilirubin Total 13.7 mg/dL (0.0-1.0); Total Protein 7.2 g/dL (6.5-8.0)
[2023-01-11 04:00] VITALS: BP 113/75; PULSE 77; RESP 16; TEMP 37; O2SAT 96
[2023-01-11] MEDS: Omeprazole 40 MG CAPSULE.DR PO ×2 (06:04→15:50)
[2023-01-11 08:00] VITALS: BP 119/79; PULSE 90; RESP 14; TEMP 37.2; O2SAT 97
[2023-01-11] MEDS: predniSONE 20 MG TABLET 40 MG PO (08:18)
[2023-01-11] MEDS: Pyridoxine HCl (Vitamin B6) 50 MG TABLET 100 MG PO (08:18)
[2023-01-11] MEDS: busPIRone HCl 10 MG TABLET 20 MG PO ×2 (08:18→22:03)
[2023-01-11] MEDS: PHENobarbitaL 15 MG TABLET PO (08:18)
[2023-01-11] MEDS: nadoloL 20 MG TABLET PO (08:18)
[2023-01-11] MEDS: Sertraline HCL 50 MG TABLET 150 MG PO (08:18)
[2023-01-11] MEDS: Acamprosate Calcium 333 MG TABLET.DR PO ×3 (08:19→22:04)
[2023-01-11 08:20] LABS: INTERNATIONAL NORM RATIO 1.8 (0.9-1.1); Prothrombin Time 21.7 SEC (10.0-13.1)
[2023-01-11 08:21] LABS: Alanine Aminotransferase 47 U/L (0-40); Albumin Level 3.2 g/dL (3.5-5.0); Alkaline Phosphatase 339 U/L (39-117); Anion Gap 11 (12-20); Aspartate Amino Transferase 99 U/L (5-37); Bilirubin Direct 8.3 mg/dL (0.0-0.5); Bilirubin Total 12.6 mg/dL (0.0-1.0); Blood Urea Nitrogen 11 mg/dL (9-16); Calcium 8.5 mg/dL (8.4-10.2); Carbon Dioxide 22 mmol/L (22-29); Chloride 107 mmol/L (96-108); Creatinine Clr Calc Pharmacy 147.6; Estimated Glomerular Filt Rate > 60; Glucose Random 83 mg/dL (60-115); Potassium 3.3 mmol/L (3.3-5.1); Sodium 137 mmol/L (135-145); Total Protein 6.6 g/dL (6.5-8.0)
[2023-01-11] MEDS: 0.9 % Sodium Chloride Flush 3 ML SYRINGE IVFLUSH ×5 (08:28→22:17)
[2023-01-11 11:37] VITALS: BP 124/83; PULSE 67; RESP 14; TEMP 36.8; O2SAT 95
[2023-01-11] MEDS: Potassium Chloride Packet 20 MEQ PACKET PO (12:24)
[2023-01-11] MEDS: Phytonadione (Vit K1) 10 MG in 0.9 % Sodium Chloride 50 ML 51 MG IV (12:25)
--- NOTE | 2023-01-11 12:25 | MHC.RECOVRN ---
This field underwriter met w/ patient, patient alert, laying in bed, watching t.v. Reviewed CSS referral sent to [facility]. Patient verbalized understanding. Patient reports feeling better and stable.
--- NOTE | 2023-01-11 12:26 | P.PNIM_ITS ---
Subjective Subjective Date of Service: 01/11/23 Interval History: Acute alcohol withdrawal,transamnitis, coagulopathy Review of Systems Denies chest pain shortness of breath or abdominal pain or nausea Still feels anxious and tremulous. Physical Exam Vital Signs: Vital Signs: Last Vital Signs Temp 98.3 F 01/11/23 11:37 Pulse 67 01/11/23 11:37 Resp 14 01/11/23 11:37 BP 124/83 01/11/23 11:37 Pulse Ox 95 01/11/23 11:37 O2 Del Method 01/11/23 11:37 BMI result Body Mass Index 25.8 Appearance: Alert.? Oriented X3.?anxious/tramulous. Eyes: Pupils equal, round and reactive to light.? Sclera nicteric.? cvs: rrr, [id number]. res: clear to auscultation ,no rhonchii or wheezing abd: no rebound or guarding ,nt, bs present. ext pulses present , no cyanosis . neuro: axo3 , nonfocal. Objective Data Active Medications Acamprosate (Acamprosate Calcium 333 Mg Tablet.) 333 mg PO TID [facility] Last Admin: 01/11/23 08:19 Dose: 333 mg Documented By: ART Buspirone HCl (Buspirone Hcl 10 Mg Tablet) 20 mg PO BID [facility] Last Admin: 01/11/23 08:18 Dose: 20 mg Documented By: ART Docusate Sodium (Docusate Sodium 100 Mg Capsule) 100 mg PO DAILY PRN PRN Reason: Constipation Hydroxyzine HCl (Hydroxyzine Hcl 25 Mg Tablet) 25 mg PO Q6H PRN PRN Reason: anxiety Last Admin: 01/07/23 00:47 Dose: 25 mg Documented By: JORI Phytonadione 10 mg/ Sodium (Chloride) 51 mls @ 51 mls/hr IV ONCE ONE Stop: 01/11/23 12:59 Last Admin: 01/11/23 12:25 Dose: 51 mls/hr Documented By: ART Nadolol (Nadolol 20 Mg Tablet) 20 mg PO DAILY [facility]; Protocol Last Admin: 01/11/23 08:18 Dose: 20 mg Documented By: ART Non-Formulary Medication (Atomoxetine) 1 cap PO DAILY [facility] Omeprazole (Omeprazole 40 Mg Capsule.Dr) 40 mg PO BID@0630,1630 [facility] Last Admin: 01/11/23 06:04 Dose: 40 mg Documented By: KAREN Pharmacy Consult (Consult Rx Perform Med Rec) 1 each MISCELLANE ONCE PRN PRN Reason: Consult order Pharmacy Consult (Consult Rx Etoh Phenob Im/Po) 1 each MISCELLANE ONCE PRN; Protocol PRN Reason: Consult order Phenobarbital (Phenobarbital 15 Mg Tablet) 15 mg PO DAILY [facility] Stop: 01/12/23 09:01 Last Admin: 01/11/23 08:18 Dose: 15 mg Documented By: ART Prednisone (Prednisone 20 Mg Tablet) 40 mg PO DAILY [facility] Last Admin: 01/11/23 08:18 Dose: 40 mg Documented By: ART Pyridoxine HCl (Pyridoxine Hcl (Vitamin B6) 50 Mg Tablet) 100 mg PO DAILY [facility] Last Admin: 01/11/23 08:18 Dose: 100 mg Documented By: ART Sertraline HCl (Sertraline Hcl 50 Mg Tablet) 150 mg PO DAILY [facility] Last Admin: 01/11/23 08:18 Dose: 150 mg Documented By: ART Sodium Chloride (0.9 % Sodium Chloride Flush 3 Ml Syringe) 3 ml IVFLUSH [facility] Last Admin: 01/10/23 19:15 Dose: 3 ml Documented By: ART Sodium Chloride (0.9 % Sodium Chloride Flush 3 Ml Syringe) 3 ml IVFLUSH [facility] Last Admin: 01/11/23 08:28 Dose: 3 ml Documented By: ART Labs 01/09/23 09:08 01/11/23 07:50 Labs: Laboratory Results - last 24 hr 01/10/23 01/11/23 01/11/23 03:32 07:50 07:50 PT 21.7 H INR 1.8 H Anion Gap 11 L Estim Creat Clear Calc 147.6 Estimated GFR > 60 Random Glucose 83 Calcium 8.5 D Total Bilirubin 13.7 H 12.6 H Direct Bilirubin 8.8 H 8.3 H AST 135 H 99 H ALT 49 H 47 H Alkaline Phosphatase 340 H 339 H Total Protein 7.2 6.6 Albumin 3.5 3.2 L Assessment and Plan (1) Alcohol withdrawal: Status: Acute (2) Alcoholic hepatitis: Status: Acute (3) Thrombocytopenia: Status: Acute (4) Anemia: Status: Acute Plan 37-year-old male with a PMH significant for?alcoholic cirrhosis, esophageal varices, and alcohol withdrawal with seizures who presents to the ED seeking alcohol detox.? Patient will be admitted to the hospital on telemetry for treatment of acute alcohol withdrawal. Acute alcohol withdrawal overall feeling better, persistent mild tremors Continue phenobarb, multivitamin, folic acid 1mg, thiamine 100mg daily on IV Protonix bid will transition to by mouth, continue seizure precautions Addiction medicine consult-Reviewed CSS referral sent to [facility]. Follow lyetes, Mag, BMP Transaminitis, hyperbilirubinemia likely due to? acute decompensated Alcoholic hepatitis ?no abdominal pain, no nausea, no vomiting tolerating diet ?total bili trending down to 13, AST ALT trending down, low albumin 2.6, INR 2. plt 35 US of abdomen shows? changes? suggestive of hepatic steatosis or hepatocellular disease, MELD? 22, GI recommend prednisone 40 mg daily,? infection ruled out chest x-ray negative UA no bacteria, blood culture x2 pending Hep A IgM? nonreactive ,Hep A IgG reactive, Hep B surface antibody positive , hepatitis-C nonreactive continue Ensure t.i.d.,on prednisone, also added iv vit K x3 says. inr ,bilirubin,albumin improving Cher score tosat 0.62 follow GI recommendation- continue prednisone. anemia/Thrombocytopenia platelets dropped from 43-24-25-36, no bleeding noted, follow CBC Prolonged QT EKG showed QTc of 514 tele today-qt is 428 ms Avoid QT-prolonging agents Full Code DVT Prophylaxis:? early ambulation avoid anticoagulation due to low platelets ?inpatient hospitalization:awaiting placement-Reviewed CSS referral sent to [facility]. Time Spent With Patient Time: Total time managing care of this patient today ____ minutes. Quality Stroke Does the patient have a stroke diagnosis?: No VTE Prior VTE?: No VTE Risk Level:: Medical - moderate - high VTE Device Contraindication: Treatment Not Indicated VTE Drug Contraindication: N/A - Med Ordered
[2023-01-11 15:04] VITALS: BP 121/77; PULSE 66; RESP 20; TEMP 37.1; O2SAT 96
[2023-01-11 20:05] VITALS: BP 116/73; PULSE 75; RESP 20; TEMP 36.2; O2SAT 97
[2023-01-11 23:40] VITALS: BP 121/78; PULSE 86; RESP 18; TEMP 37.4; O2SAT 96
[2023-01-12 03:41] VITALS: BP 115/70; PULSE 65; RESP 14; TEMP 36.7; O2SAT 96
[2023-01-12] MEDS: Omeprazole 40 MG CAPSULE.DR PO ×2 (05:48→16:04)
[2023-01-12 08:00] VITALS: BP 126/78; PULSE 78; RESP 18; TEMP 36.7; O2SAT 98
[2023-01-12] MEDS: nadoloL 20 MG TABLET PO (08:56)
[2023-01-12] MEDS: Sertraline HCL 50 MG TABLET 150 MG PO (08:56)
[2023-01-12] MEDS: busPIRone HCl 10 MG TABLET 20 MG PO (08:56)
[2023-01-12] MEDS: predniSONE 20 MG TABLET 40 MG PO (08:56)
[2023-01-12] MEDS: Pyridoxine HCl (Vitamin B6) 50 MG TABLET 100 MG PO (08:56)
[2023-01-12] MEDS: PHENobarbitaL 15 MG TABLET PO (08:56)
[2023-01-12] MEDS: 0.9 % Sodium Chloride Flush 3 ML SYRINGE IVFLUSH ×2 (08:57→16:04)
[2023-01-12] MEDS: Acamprosate Calcium 333 MG TABLET.DR PO ×2 (08:57→16:04)
--- NOTE | 2023-01-12 10:53 | HO.PM.IMPN ---
Subjective Subjective Date of Service: 01/12/23 Interval History: Acute alcohol withdrawal,transamnitis, coagulopathy Review of Systems Denies chest pain shortness of breath or abdominal pain or nausea Still feels anxious and tremulous. Physical Exam Vital Signs: Vital Signs: Last Vital Signs Temp 98.0 F 01/12/23 08:00 Pulse 78 01/12/23 08:00 Resp 18 01/12/23 08:00 BP 126/78 01/12/23 08:00 Pulse Ox 98 01/12/23 08:00 O2 Del Method 01/12/23 08:00 BMI result Body Mass Index 25.8 Appearance: Alert.? Oriented X3.?anxious/tramulous. Eyes: Pupils equal, round and reactive to light.? Sclera nicteric.? cvs: rrr, [id number]. res: clear to auscultation ,no rhonchii or wheezing abd: no rebound or guarding ,nt, bs present. ext pulses present , no cyanosis . neuro: axo3 , nonfocal. Objective Data Active Medications Acamprosate (Acamprosate Calcium 333 Mg Tablet.) 333 mg PO TID [facility] Last Admin: 01/12/23 08:57 Dose: 333 mg Documented By: GABRIELLE Buspirone HCl (Buspirone Hcl 10 Mg Tablet) 20 mg PO BID [facility] Last Admin: 01/12/23 08:56 Dose: 20 mg Documented By: GABRIELLE Docusate Sodium (Docusate Sodium 100 Mg Capsule) 100 mg PO DAILY PRN PRN Reason: Constipation Hydroxyzine HCl (Hydroxyzine Hcl 25 Mg Tablet) 25 mg PO Q6H PRN PRN Reason: anxiety Last Admin: 01/07/23 00:47 Dose: 25 mg Documented By: SERRANMoiz Nadolol (Nadolol 20 Mg Tablet) 20 mg PO DAILY [facility]; Protocol Last Admin: 01/12/23 08:56 Dose: 20 mg Documented By: GABRIELLE Non-Formulary Medication (Atomoxetine) 1 cap PO DAILY [facility] Omeprazole (Omeprazole 40 Mg Capsule.) 40 mg PO BID@0630,1630 [facility] Last Admin: 01/12/23 05:48 Dose: 40 mg Documented By: ROSALINE Pharmacy Consult (Consult Rx Perform Med Rec) 1 each MISCELLANE ONCE PRN PRN Reason: Consult order Pharmacy Consult (Consult Rx Etoh Phenob Im/Po) 1 each MISCELLANE ONCE PRN; Protocol PRN Reason: Consult order Prednisone (Prednisone 20 Mg Tablet) 40 mg PO DAILY [facility] Last Admin: 01/12/23 08:56 Dose: 40 mg Documented By: GABRIELLE Pyridoxine HCl (Pyridoxine Hcl (Vitamin B6) 50 Mg Tablet) 100 mg PO DAILY [facility] Last Admin: 01/12/23 08:56 Dose: 100 mg Documented By: GABRIELLE Sertraline HCl (Sertraline Hcl 50 Mg Tablet) 150 mg PO DAILY [facility] Last Admin: 01/12/23 08:56 Dose: 150 mg Documented By: GABRIELLE Sodium Chloride (0.9 % Sodium Chloride Flush 3 Ml Syringe) 3 ml IVFLUSH QSWIFT [facility] Last Admin: 01/11/23 15:58 Dose: 3 ml Documented By: VENKATMAT Sodium Chloride (0.9 % Sodium Chloride Flush 3 Ml Syringe) [facility] Last Admin: 01/12/23 08:57 Dose: 3 ml Documented By: GABRIELLE Labs 01/09/23 09:08 01/11/23 07:50 Microbiology Microbiology Results: Microbiology 01/06/23 16:20 Blood Culture - Final Blood - Venous No growth after 5 days. 01/06/23 16:21 Blood Culture - Final Blood - Venous No growth after 5 days. Assessment and Plan (1) Alcohol withdrawal: Status: Acute (2) Thrombocytopenia: Status: Acute (3) Anemia: Status: Acute (4) Alcoholic hepatitis: Status: Acute Plan 37-year-old male with a PMH significant for?alcoholic cirrhosis, esophageal varices, and alcohol withdrawal with seizures who presents to the ED seeking alcohol detox.? Patient will be admitted to the hospital on telemetry for treatment of acute alcohol withdrawal. Acute alcohol withdrawal overall feeling better, seems improved. Continue phenobarb, multivitamin, folic acid 1mg, thiamine 100mg daily,po ppi Addiction medicine consult-Reviewed CSS referral sent to [facility]. Transaminitis, hyperbilirubinemia likely due to? acute decompensated Alcoholic hepatitis ?no abdominal pain, no nausea, no vomiting tolerating diet ?total bili trending down to 13, AST ALT trending down, low albumin 2.6, INR 2. plt 35 US of abdomen shows? changes? suggestive of hepatic steatosis or hepatocellular disease, MELD? 22, GI recommend prednisone 40 mg daily,? infection ruled out chest x-ray negative UA no bacteria, blood culture x2 pending Hep A IgM? nonreactive ,Hep A IgG reactive, Hep B surface antibody positive , hepatitis-C nonreactive continue Ensure t.i.d.,on prednisone, also added iv vit K x3 says. inr ,bilirubin,albumin improving Cher score 0.62 follow GI recommendation- continue prednisone ( d/w GI and recomendations -Can cont pred 40 dosing for 30 days total and then decrease by 10mg x7 days). anemia/Thrombocytopenia platelets dropped from 43-24-25-36, no bleeding noted, follow CBC Prolonged QT EKG showed QTc of 514 tele today-qt is 428 ms Avoid QT-prolonging agents Full Code DVT Prophylaxis:? early ambulation avoid anticoagulation due to low platelets ?inpatient hospitalization:awaiting placement-Reviewed CSS referral sent to [facility]. Time Spent With Patient Time: Total time managing care of this patient today ____ minutes. Quality Stroke Does the patient have a stroke diagnosis?: No VTE Prior VTE?: No VTE Risk Level:: Medical - moderate - high VTE Device Contraindication: Treatment Not Indicated VTE Drug Contraindication: N/A - Med Ordered
[2023-01-12 11:55] VITALS: BP 117/69; PULSE 65; RESP 18; TEMP 37.3; O2SAT 97
--- NOTE | 2023-01-12 13:01 | MHC.CM.PN ---
KRISHAN spoke with certified lactation educator/Smiley; there are no beds at [facility]. KRISHAN has relayed this message to .
--- NOTE | 2023-01-12 14:32 | MHC.RECOVRN ---
Addendum entered by Smiley Castaneda 01/12/23 14:48: Pt provided with N and [facility] intake phone numbers, if needed. Original Note: Met with pt in 450 to follow up regarding CSS referrals. [facility] does not have bed availability today. [facility] unable to accept patient today, however, they will accommodate patient tomorrow before 11AM per Carmelita Mcdaniel ([phone]). Pt plans to dc home and stay with parents for the night. Pt agreeable. Provider aware.
[2023-01-12 14:51] VITALS: BP 124/76; PULSE 64; RESP 18; TEMP 36.7; O2SAT 95
--- NOTE | 2023-01-12 16:14 | PM.DS ---
DS: Providers Provider Date of Service: 01/12/23 Date of admission: 01/07/23 07:16 Date of discharge: 01/12/23 Primary care physician: None Physician Consults: 01/06/23 15:56 Addiction Medicine Routine Consulting Provider: Addiction Covering Reason for consultation: Alcohol withdrawal 01/06/23 16:03 Consult to Gastroenterology Routine Consulting Provider: Leila Lowery Reason for consultation: Elevated LFTs, jaundice Has provider been notified: Yes DS: Diagnosis Discharge Diagnosis (1) Alcohol withdrawal: Status: Acute (2) Thrombocytopenia: Status: Acute (3) Anemia: Status: Acute (4) Alcoholic hepatitis: Status: Acute DS: Summary Hospital Course Hospital Course: 37-year-old male with a PMH significant for?alcoholic cirrhosis, esophageal varices, and alcohol withdrawal with seizures who presents to the ED seeking alcohol detox.? Patient has been drinking heavily for the past 20 years with multiple detoxes and attempts at quitting. Most recently detoxed on 12/16, sober following for up to one week. Has been drinking 1.5L of vodka daily since. Pt stopped drinking this morning at 03:30. Soon developed shakes, nausea, and vomiting without hematemesis.? Patient then presented to the ED for detox.? Patient states that he has had headache and increase in anxiety.? Denies diaphoresis. No abdominal pain.? Denies seizures, auditory or visual hallucinations. In the ED labs were significant for WBC of 4.3, H&H of 12.6/37.4, platelets 43, BUN 6, total bilirubin of 15.1, AST 390, ALT 9, and alk-phos of 375. Ultrasound of upper right quadrant suggestive of hepatic steatosis or hepatocellular disease with nonspecific gallbladder wall thickening possibly secondary to liver disease without cholelithiasis. EKG demonstrated normal sinus rhythm without evidence of ST elevation or depression. Pt was treated with Ativan, ondansetron, Mag sulfate, and placed on phenobarb protocol. Pt will be admitted to the hospital for treatment of acute alcohol withdrawal. Hospital course: Patient came to the hospital because of alcohol withdrawal: Started on CIWA protocol, phenobarb, folic acid thiamine seems to be improved significantly. Alcoholic hepatitis: Patient was started on p.o. prednisone-says LFTs are improving, patient was strongly advised to abstain from alcohol, patient is going home, as per recovery team-patient will be going to [facility] from home. Patient was given 26 day prednisone supply , after that patient will need prednisone taper starting 30 mg and taper by 10 mg Q weekly. Anemia thrombocytopenia: Possibly related to alcohol use, improving, follow CBC outpatient. Patient is to follow-up CBC, CMP, INR outpatient with PCP. For the supply of prednisone with PCP. Also patient is to follow up with GI outpatient. Prolonged QT: intail QTc of 514 tele today-qt is 428 ms Avoid QT-prolonging agents. plan: continue prednisone 26 day prednisone supply(given) , after that patient will need prednisone taper starting 30 mg and taper by 10 mg Q weekly. Avoid QT-prolonging agents. Patient is to follow-up CBC, CMP, INR outpatient with PCP. Follow-up with PCP and GI outpatient. Discussed the patient in detail length assessment and plan coordinated, time spent 50 minute. Time Spent with Patient Time attestation: Total time managing care of this patient today ____ minutes. Discharge coordination time: Greater than 30 minutes Quality: Safe Use of Opioids Does Pt have an Active Cancer Diagnosis on the Problem List?: No Quality: Stroke Does the patient have a stroke diagnosis?: No Physical Exam Vital Signs: Vital Signs: Last Vital Signs Temp 98.0 F 01/12/23 14:51 Pulse 64 01/12/23 14:51 Resp 18 01/12/23 14:51 BP 124/76 01/12/23 14:51 Pulse Ox 95 01/12/23 14:51 O2 Del Method 01/12/23 14:51 BMI result Body Mass Index 25.8 Appearance: Alert.? Oriented X3.?anxious/tramulous. Eyes: Pupils equal, round and reactive to light.? Sclera nicteric.? cvs: rrr, [id number]. res: clear to auscultation ,no rhonchii or wheezing abd: no rebound or guarding ,nt, bs present. ext pulses present , no cyanosis . neuro: axo3 , nonfocal DS: Data Imaging Chest x-ray: Radiologist's impression: ITS Impressions Abdomen Ultrasound 01/06/23 11:31 IMPRESSION: 1. Increased liver parenchymal echogenicity suggestive of hepatic steatosis or hepatocellular disease. 2. Nonspecific gallbladder wall thickening. This can be seen in the setting of liver disease. No cholelithiasis. Chest X-Ray 01/06/23 15:47 IMPRESSION: No acute cardiopulmonary process. Discharge Plan Discharge Anticipated Discharge Date/Time: 01/12/23 15:42 Patient Disposition: Home, Self-Care Discharge Diagnosis: Alcoholic hepatitis, alcohol withdrawal. Referrals: Physician,None [Primary Care Provider] - 1 Week Discharge Medications: New omeprazole 40 mg Capsule,Delayed Release(Dr/Ec) 40 mg PO BID@0630,1630 Qty: 60 0RF prednisone 20 mg Tablet 40 mg PO DAILY Qty: 26 0RF Continued sertraline 100 mg tablet 150 mg PO DAILY nadolol 20 mg tablet 1 tab PO DAILY buspirone 10 mg tablet 20 mg PO BID pyridoxine (vitamin B6) 100 mg tablet 1 tab PO DAILY gabapentin 100 mg capsule 1 cap PO TID acamprosate 333 mg tablet,delayed release (DR/EC) 1 tab PO TID atomoxetine 80 mg capsule 1 cap PO QAM Discharge Orders: Discharge Order (Routine); Ordered 01/12/23 Ordered By: Suzanne Lau Diet: Advance to usual diet Activity on Discharge: As tolerated Stand Alone Forms: Patient Portal Discharge page Care Plan Goals: Patient came to the hospital because of alcohol withdrawal: Started on CIWA protocol, phenobarb, folic acid thiamine seems to be improved significantly. Alcoholic hepatitis: Patient was started on p.o. prednisone-says LFTs are improving, patient was strongly advised to abstain from alcohol, patient is going home, as per recovery team-patient will be going to [facility] from home. Patient was given 26 day prednisone supply , after that patient will need prednisone taper starting 30 mg and taper by 10 mg Q weekly. Anemia thrombocytopenia: Possibly related to alcohol use, improving, follow CBC outpatient. Patient is to follow-up CBC, CMP, INR outpatient with PCP. For the supply of prednisone with PCP. Also patient is to follow up with GI outpatient Health Concerns: As above. Plan of Treatment: As above. Assessment: As above.
--- NOTE | 2023-01-12 16:25 | MHC.CM.PN ---
Patient has been medically cleared for dc to home today, self care.CM addressed IMM with Patient at bedside today, original was given to him and a copy was placed on the chart. Per respiratory support technician/Smiley, Judith Rolon will have a bed ([facility] bed) for Patient tomorrow. Patient states that he is pleased to be going home today and his Mother is providing transport to home.
--- NOTE | 2023-01-12 16:52 | PM.GIPN ---
Subjective Subjective Date of Service: 01/12/23 Critical Care Time (minutes): 0 Comment: Patient seen and evaluated at bedside. Had reviewed the case with the hospitalist with the weekend as well. Day 4 [place] score reassuring and he is being continued on prednisone. Physical Exam Vital Signs: Vital Signs: Last Vital Signs Temp 98.0 F 01/12/23 14:51 Pulse 64 01/12/23 14:51 Resp 18 01/12/23 14:51 BP 124/76 01/12/23 14:51 Pulse Ox 95 01/12/23 14:51 O2 Del Method 01/12/23 14:51 BMI result Body Mass Index 25.8 General appearance: Grossly jaundiced, nontoxic appearing Abdomen: Soft, distended, nontender, no shifting dullness to percussion Neuro: Alert, oriented x3, no asterixis, continues to be tremulous Objective Data Labs 01/09/23 09:08 01/11/23 07:50 Microbiology Microbiology Results: Microbiology 01/06/23 16:20 Blood - Venous Blood Culture - Final No growth after 5 days. 01/06/23 16:21 Blood - Venous Blood Culture - Final No growth after 5 days. Procedures Date of Service Date of Service: 01/12/23 Progress Note: A&P Assessment and plan (1) Alcohol withdrawal: Status: Acute (2) Alcoholic hepatitis: Status: Acute (3) Alcohol use disorder: Status: Acute Plan Overall presentation consistent with acute alcohol withdrawal complicated by alcoholic hepatitis.? Likely has some degree of underlying liver fibrosis and possibly portal hypertension given the degree of thrombocytopenia, secondary to longstanding alcohol use disorder. Admission MDF 45.9 and MELD-Na 22 Started on prednisone 01/07. Day 4LM: 0.62. Recommendations: -Ok to discharge -Prepped for [facility] admission to [facility] -Cont prednisone 40mg x 30 days total i.e 01/05. -Then taper by 10mg per week. -Cont ensure TID -Outpatient follow up will be set up Time Spent With Patient Time: Total time managing care of this patient today ____ minutes. Quality Stroke Does the patient have a stroke diagnosis?: No VTE Prior VTE?: No VTE Risk Level:: Medical - moderate - high VTE Device Contraindication: Treatment Not Indicated VTE Drug Contraindication: N/A - Med Ordered
== END 2023-01-12 17:38 | disposition home or self-care (01) | DRG 433 ==
LOC: HO.ED 17:36 → HO.EDOVER 01-07 07:18 → HO.IMC 01-07 07:24
PROVIDERS: Physician Assistant Medical; Admitting Provider Hospitalist; Emergency Provider Emergency Medicine; Visit Provider Internal Medicine
DX: K70.10 Alcoholic hepatitis without ascites (principal); F10.139 Alcohol abuse with withdrawal, unspecified; K76.6 Portal hypertension; D64.9 Anemia, unspecified; K70.2 Alcoholic fibrosis and sclerosis of liver; D69.59 Other secondary thrombocytopenia; K70.30 Alcoholic cirrhosis of liver without ascites; R94.31 Abnormal electrocardiogram [ECG] [EKG]; Z20.822 Contact with and (suspected) exposure to COVID-19; Z79.899 Other long term (current) drug therapy
CPT/HCPCS: 36415; 71045; 76705; 80048; 80053; 80076; 80143; 80179; 80307; 81001; 82140; 83735; 85014; 85018; 85025; 85027; 85049; 85610; 85730; 86704; 86706; 86708; 86709; 86803; 86850; 86900; 86901; 87040; 87340; 87635; 93005; 96365; 96366; 96372; 96375; 99285; J2560; J3430; J3475; P9047

== ENCOUNTER 2023-02-04 09:43 | Outpatient (REF) | payer MEDICARE, SELFPAY ==
[2023-02-04 11:31] LABS: INTERNATIONAL NORM RATIO 1.4 (0.9-1.1); Prothrombin Time 16.4 SEC (10.0-13.1)
[2023-02-04 11:39] LABS: Hematocrit 42.9 % (42.0-52.0); Hemoglobin 14.2 g/dl (14.0-18.0); Mean Corpuscular HGB Conc 33.1 g/dl (31.0-36.0); Mean Corpuscular Hemoglobin 33.8 pg (27.0-33.0); Mean Corpuscular Volume 102.1 fL (80.0-98.0); Mean Platelet Volume 10.2 fL (9.4-12.4); Red Cell Distribution Width 15.6 % (11.0-16.0); White Blood Count 11.3 X10*3/uL (4.8-10.8)
[2023-02-04 11:44] LABS: Platelet Count 69 X10*3/uL (160-400)
[2023-02-04 12:22] LABS: Alanine Aminotransferase 93 U/L (0-40); Albumin Level 3.5 g/dL (3.5-5.0); Alkaline Phosphatase 310 U/L (39-117); Anion Gap 11 (12-20); Aspartate Amino Transferase 101 U/L (5-37); Bilirubin Total 3.8 mg/dL (0.0-1.0); Blood Urea Nitrogen 11 mg/dL (9-16); Calcium 9.1 mg/dL (8.4-10.2); Carbon Dioxide 28 mmol/L (22-29); Chloride 107 mmol/L (96-108); Estimated Glomerular Filt Rate > 60; Glucose Random 76 mg/dL (60-115); Potassium 4.3 mmol/L (3.3-5.1); Sodium 142 mmol/L (135-145); Total Protein 6.9 g/dL (6.5-8.0)
== END 2023-02-04 09:44 | disposition home or self-care (01) ==
LOC: HO.LAB 09:43
PROVIDERS: PCP Internal Medicine; Visit Provider Internal Medicine
DX: K70.10 Alcoholic hepatitis without ascites (principal); F10.90 Alcohol use, unspecified, uncomplicated; D69.6 Thrombocytopenia, unspecified
CPT/HCPCS: 36415; 80053; 85027; 85610; 99212